=== PATIENT | female | born 1960 | race Caucasian/White ===

== ENCOUNTER 2018-09-10 16:15 | Outpatient (REF) | payer OTHER, SELFPAY | END 2018-09-10 16:35 | LOC: NCHCN 16:15 | PROVIDERS: PCP Physician Assistant Medical; Visit Provider Specialist/Technologist Athletic Trainer | DX: J02.9 Acute pharyngitis, unspecified (principal) | CPT/HCPCS: 87070 ==

== ENCOUNTER 2019-01-16 19:47 | Outpatient (REF) | payer OTHER, SELFPAY ==
[2019-01-21 10:32] LABS: Codeine Negative ng/mL (Cutoff: 25); Dihydrocodeine 73 ng/mL (Cutoff: 25); Hydrocodone 454 ng/mL (Cutoff: 25); Hydromorphone 100 ng/mL (Cutoff: 25); Morphine Negative ng/mL (Cutoff: 25); Naloxone Negative ng/mL (Cutoff: 25); Norhydrocodone 316 ng/mL (Cutoff: 25); Noroxycodone Negative ng/mL (Cutoff: 25); Noroxymorphone Negative ng/mL (Cutoff: 25); Opiates Interpretation Positive.
== END 2019-01-16 20:07 ==
LOC: NCHCN 19:47
PROVIDERS: PCP Physician Assistant Medical; Visit Provider Physician Assistant Medical
DX: M25.561 Pain in right knee (principal); Z79.891 Long term (current) use of opiate analgesic
CPT/HCPCS: 80361

== ENCOUNTER 2020-06-22 20:35 | Outpatient (REF) | payer OTHER, SELFPAY ==
[2020-06-22 20:49] LABS: Abs Immature Grans 0.03 10^3/uL (0.0-0.06); Absolute Basophil Count 0.05 10^3/uL (0.0-0.2); Absolute Eosinophil Count 0.26 10^3/uL (0.0-0.7); Absolute Lymphocyte Count 3.32 10^3/uL (1.2-3.4); Absolute Monocyte Count 0.56 10^3/uL (0.1-0.8); Absolute Neutrophil Count 6.53 10^3/uL (1.2-6.7); Basophils % 0.5; Eosinophils % 2.4; HCT 38.9 % (36.0-46.0); HGB 13.4 g/dL (11.2-15.7); Immature Grans % 0.3; Lymphocytes % 30.9; MCH 30.7 pg (27.0-33.0); MCHC 34.4 % (32.0-36.0); MCV 89.2 fL (80-95); MPV 10.7 fL (8.0-11.0); Monocytes % 5.2; Neutrophils % 60.7; Nucleated RBC 0 %; Platelet Count 372 10^3/uL (130-400); RBC 4.36 10^6/uL (3.93-5.22); RDW 11.5 % (11.7-14.6); WBC 10.75 10^3/uL (4.4-10.8)
[2020-06-22 21:10] LABS: ALT 30 U/L (14-59); AST 20 U/L (15-37); Albumin 3.8 g/dL (3.4-5.0); Alkaline Phosphatase 88 U/L (46-116); Anion Gap 10.4 mmol/L (3-11); BUN 15 mg/dL (7-18); Bilirubin, Total 0.2 mg/dL (0.2-1.0); CO2 25.6 mmol/L (21.0-32.0); CREATININE 0.81 mg/dL (0.55-1.02); Calcium 8.9 mg/dL (8.5-10.1); Chloride 104 mmol/L (98-107); Glucose 123 mg/dL (74-106); Magnesium 2.1 mg/dL (1.8-2.4); Potassium 3.7 mmol/L (3.5-5.1); Sodium 140 mmol/L (136-145); Total Protein 6.6 g/dL (6.4-8.2)
[2020-06-24 14:38] LABS: Hemoglobin A1C 5.8 % (<5.7)
== END 2020-06-22 20:55 ==
LOC: NCHCN 20:35
PROVIDERS: PCP Physician Assistant Medical; Visit Provider Physician Assistant Medical
DX: R25.2 Cramp and spasm (principal); R73.9 Hyperglycemia, unspecified
CPT/HCPCS: 80053; 83036; 83735; 85025

== ENCOUNTER 2021-03-21 16:41 | Outpatient (REF) | payer MEDICAID, SELFPAY ==
[2021-03-21 22:08] LABS: Calculated LDL 159 mg/dL (<100); Cholesterol 234 mg/dL (<200); HDL Cholesterol 44 mg/dL (40-60); Triglyceride 158 mg/dL (<150)
== END 2021-03-21 16:42 | disposition home or self-care (01) ==
LOC: NCHCN 16:41
PROVIDERS: PCP Physician Assistant Medical; Visit Provider Physician Assistant Medical
DX: Z00.8 Encounter for other general examination (principal)
CPT/HCPCS: 80061; 83036

== ENCOUNTER 2021-04-14 03:47 | Outpatient (CLI) | payer MEDICAID, SELFPAY ==
--- NOTE | 2021-04-14 | DI.MAMMO_ITS ---
Exam(s) MAMMO SCREENING EXAM: MAMMO SCREENING CLINICAL HISTORY: SCREENING, HEALTH MAINTENANCE EXAM,Z00.8 TECHNIQUE: Bilateral full field digital CC and MLO mammographic images were obtained with 3D tomosyn thesis and utilizing computer aided detection (CAD). COMPARISON: Available for comparison. FINDINGS: Masses/Architectural Distortion: None seen. Microcalcifications: No suspicious pleomorphic-type are seen. Skin Thickening/Nipple Retraction: None. IMPRESSION: 1. No significant interval change with no specific features of malignancy noted. 2. Unless there is more urgent need, screening mammography is recommended, as per [employer] guidelines. BI-RADS Category 1 - Negative Breast Density - Category B - Scattered areas of fibroglandular density Breast density category C or D implies that the patient has dense breast tissue. Dense breast tissue is very common and is not abnormal but dense breast tissue can make it harder to find cancer on a ma mmogram. Also, dense breast tissue may increase their breast cancer risk. This information about the result of the mammogram report was provided to the patient to raise their awareness. Use this report when you speak with the patient about their risks for breast cancer, which includes their family hist ory. At that time, you may recommend for more screening tests (Ultrasound or MRI) as they might be us eful based on their risk. A negative radiographic report should not delay biopsy if a dominant or clinically suspicious mass is present. Up to ten percent of cancers are not identified on mammography. A negative report may reinforce clinical impression. Adenosis and dense breasts may obscure an underlying neoplasm. False positive reports average 6 to 10%. Patient will receive a letter notifying them of these results.
== END 2021-04-14 04:07 ==
PROVIDERS: PCP Physician Assistant Medical; Visit Provider Physician Assistant Medical
DX: Z12.31 Encounter for screening mammogram for malignant neoplasm of breast (principal); Z00.8 Encounter for other general examination; R92.8 Other abnormal and inconclusive findings on diagnostic imaging of breast
CPT/HCPCS: 77063; 77067

== ENCOUNTER 2021-06-28 13:23 | Outpatient (REF) | payer MEDICAID, SELFPAY ==
[2021-06-28 14:19] LABS: Hemoglobin A1C 5.9 % (<5.7)
[2021-06-28 14:26] LABS: ALT 42 U/L (14-59); AST 16 U/L (15-37); Alkaline Phosphatase 98 U/L (46-116); Anion Gap 11.1 mmol/L (3-11); BUN 11 mg/dL (7-18); Bilirubin, Total 0.4 mg/dL (0.2-1.0); CO2 23.9 mmol/L (21.0-32.0); CREATININE 0.7 mg/dL (0.55-1.02); Calculated LDL 105 mg/dL (<100); Chloride 106 mmol/L (98-107); Cholesterol 162 mg/dL (<200); Glucose 87 mg/dL (74-106); HDL Cholesterol 44 mg/dL (40-60); Potassium 4.2 mmol/L (3.5-5.1); Sodium 141 mmol/L (136-145); Total Protein 7.1 g/dL (6.4-8.2); Triglyceride 69 mg/dL (<150)
== END 2021-06-28 13:24 | disposition home or self-care (01) ==
LOC: NCHCN 13:23
PROVIDERS: PCP Physician Assistant Medical; Visit Provider Physician Assistant Medical
DX: Z00.8 Encounter for other general examination (principal)
CPT/HCPCS: 80053; 80061; 83036

== ENCOUNTER 2021-11-23 11:21 | Outpatient (CLI) | payer MEDICAID, SELFPAY ==
--- NOTE | 2021-11-23 11:17 | DI.RAD_ITS ---
Exam(s) XR KNEE RT 4V AP,LAT,MELYSSA,PAT EXAM: XR KNEE RT 4V AP,LAT,MELYSSA,PAT CLINICAL HISTORY: right knee pain TECHNIQUE: COMPARISON: CR RIGHT KNEE 3 VIEWS from 04/11/2015 FINDINGS: Four views were obtained. There is moderate narrowing of cartilaginous joint space of lateral tibiof emoral joint and mild narrowing of medial tibiofemoral cartilaginous joint space and lateral aspect c artilaginous joint space of patellofemoral joint. There is mild marginal osteophyte formation involv ing all 3 joints of knee. There appears to be a moderate joint effusion. IMPRESSION: Tricompartment degenerative changes, most marked involving lateral tibiofemoral joint. RADIATION DOSE DELIVERED: Total DLP
== END 2021-11-23 11:22 | disposition home or self-care (01) ==
LOC: DIORS 11:22
PROVIDERS: PCP Physician Assistant Medical; Visit Provider Physician Assistant
DX: M25.561 Pain in right knee (principal); M17.11 Unilateral primary osteoarthritis, right knee
CPT/HCPCS: 73564

== ENCOUNTER 2022-07-02 10:06 | Outpatient (REF) | payer MEDICAID, SELFPAY ==
[2022-07-02 16:14] LABS: Hemoglobin A1C 5.9 % (<5.7)
[2022-07-02 16:50] LABS: ALT 51 U/L (14-59); AST 33 U/L (15-37); Albumin 3.8 g/dL (3.4-5.0); Alkaline Phosphatase 77 U/L (46-116); Anion Gap 10.1 mmol/L (3-11); BUN 13 mg/dL (7-18); Bilirubin, Total 0.4 mg/dL (0.2-1.0); CO2 23.9 mmol/L (21.0-32.0); CREATININE 0.8 mg/dL (0.55-1.02); Calcium 9.1 mg/dL (8.5-10.1); Calculated LDL 106 mg/dL (<100); Chloride 104 mmol/L (98-107); Cholesterol 174 mg/dL (<200); Estimated GFR 82.23 (mL/min/1.73m2); Glucose 106 mg/dL (74-106); HDL Cholesterol 39 mg/dL (40-60); Potassium 4.1 mmol/L (3.5-5.1); Sodium 138 mmol/L (136-145); Total Protein 7.3 g/dL (6.4-8.2); Triglyceride 147 mg/dL (<150)
== END 2022-07-02 10:07 | disposition home or self-care (01) ==
LOC: NCHCN 10:06
PROVIDERS: PCP Physician Assistant Medical; Visit Provider Physician Assistant Medical
DX: E78.5 Hyperlipidemia, unspecified (principal); R73.03 Prediabetes
CPT/HCPCS: 80053; 80061; 83036; 84443

== ENCOUNTER → 2022-07-12 03:15 | Outpatient (CLI) | payer MEDICAID, SELFPAY ==
--- NOTE | 2022-07-12 14:30 | DI.CTLCSR_ITS ---
Exam(s) CT CHEST LUNG CANCER SCREEN EXAM: CT CHEST LUNG CANCER SCREEN CLINICAL HISTORY: SMOKER, F17.210 TECHNIQUE: Imaging Protocol: Axial computed tomography images with coronal and sagittal reformatted images were created and reviewed COMPARISON: No exams were available for comparison FINDINGS: Tracheobronchial tree: Patent where visualized. Pulmonary parenchyma: No consolidation or dominant measurable mass. Mild emphysematous changes are pr esent in the lungs. There is mild bilateral dependent atelectasis. Lung Nodules: None. Mediastinum and Noemi: No dominant adenopathy or fluid collection. The esophagus is unremarkable.There is a small hiatal hernia. Thyroid gland: Unremarkable. Lymph nodes: Unremarkable. Pleura: No effusion or pneumothorax. Heart: The heart is not dilated. Mild coronary artery calcifications are present. No pericardial eff usion. Aorta: Thoracic aorta non-dilated. Upper abdomen: Unremarkable. Soft Tissues: Unremarkable. Bones: Within normal limits. IMPRESSION: No pulmonary nodules are identified. Lung RADS Cat 1 - Negative: No nodules and definitely benign nodules Lung-RADS 1.0 CATEGORIES: Category 0 - Prior chest CT exam(s) being located for comparison. Category 1 - Annual screening in 12 months. No nodules or definitely benign nodules. Category 2 - Annual screening in 12 months. Benign appearance. Nodules with low likelihood of becomin g active cancer. Category 3 - 6-month follow-up. Probably benign. Short-term follow-up suggested. Nodules with low lik elihood of becoming active cancer. Category 4A - 3-month follow-up and CT/PET if >8 mm in size. Suspicious finding. Findings which requi re additional testing. Category 4B - Findings which require additional testing and tissue sampling. Suspicious finding. Category 4X - Category 3 or 4 nodules with additional features or imaging findings that increases the suspicion of malignancy. Modifier S- Potentially clinically significant finding. (Non lung cancer) RADIATION DOSE DELIVERED: 85.61mGy.cm Total DLP 2.21mGy!Error CTDIvol 85.61mGy.cm Total DLP 2.21mGy!Error CTDIvol DATA REPOSITORY: All CT scans at this facility are submitted to the National Radiology Data Registry (NRDR) Dose Index Registry (DIR) with the [employer] ([employer]). RADIATION OPTIMIZATION: All CT scans at this facility use at least one of these dose optimization te chniques: automated exposure control; mA and/or kV adjustment per patient size (includes targeted exa ms where dose is matched to clinical indication); or iterative reconstruction.
== END ==
PROVIDERS: PCP Physician Assistant Medical; Visit Provider Physician Assistant Medical
DX: Z12.2 Encounter for screening for malignant neoplasm of respiratory organs (principal); F17.210 Nicotine dependence, cigarettes, uncomplicated
CPT/HCPCS: 71271

== ENCOUNTER 2022-12-26 15:37 | Outpatient (REF) | payer MEDICAID, SELFPAY ==
[2022-12-26 20:16] LABS: ALT 55 U/L (14-59); AST 33 U/L (15-37); Albumin 3.9 g/dL (3.4-5.0); Alkaline Phosphatase 79 U/L (46-116); Anion Gap 8.5 mmol/L (3-11); BUN 14 mg/dL (7-18); Bilirubin, Total 0.4 mg/dL (0.2-1.0); CO2 25.5 mmol/L (21.0-32.0); CREATININE 0.9 mg/dL (0.55-1.02); Calcium 9.4 mg/dL (8.5-10.1); Calculated LDL 127 mg/dL (<100); Chloride 105 mmol/L (98-107); Cholesterol 198 mg/dL (<200); Estimated GFR 71.39 (mL/min/1.73m2); Glucose 108 mg/dL (74-106); HDL Cholesterol 46 mg/dL (40-60); Potassium 3.9 mmol/L (3.5-5.1); Sodium 139 mmol/L (136-145); Total Protein 7.6 g/dL (6.4-8.2); Triglyceride 126 mg/dL (<150)
== END 2022-12-26 15:38 | disposition home or self-care (01) ==
LOC: NCHCN 15:37
PROVIDERS: PCP Physician Assistant Medical; Visit Provider Physician Assistant Medical
DX: E78.5 Hyperlipidemia, unspecified (principal); R73.03 Prediabetes
CPT/HCPCS: 80053; 80061; 83036

== ENCOUNTER 2023-01-08 10:05 | Outpatient (CLI) | payer MEDICAID, SELFPAY ==
--- NOTE | 2023-01-08 08:38 | DI.RAD_ITS ---
Exam(s) XR SHOULDER LT COMPLETE 2+V EXAM: XR SHOULDER LT COMPLETE 2+V CLINICAL HISTORY: Left shoulder pain. TECHNIQUE: 2D digital imaging was performed of the left shoulder. Three images were obtained. AP, Grashey, Y-view and axillary views were obtained. COMPARISON: CT CT CHEST LUNG CANCER SCREEN from 07/12/2022 FINDINGS: BONES: No acute fracture is present. No bony destructive lesion is seen. There is a bony protuberance which may arise from the region of the lesser tuberosity. JOINTS: No dislocation present. There is mild spurring at the humeral head. The glenohumeral joint i s otherwise unremarkable. Mild hypertrophic changes are also seen at the acromioclavicular joint. SOFT TISSUE: Normal. IMPRESSION: 1. Mild degenerative changes seen at the glenohumeral joint. 2. Bony protuberance which appears to arise from the lesser tuberosity. This is incompletely imaged on this examination. A CT scan of the shoulder should be considered for further evaluation. DATA REPOSITORY: RADIATION DOSE DELIVERED:
== END 2023-01-08 10:06 | disposition home or self-care (01) ==
LOC: DIORS 10:05
PROVIDERS: PCP Physician Assistant Medical; Visit Provider Student in an Organized Health Care Education/Training Program
DX: M25.512 Pain in left shoulder (principal); M25.812 Other specified joint disorders, left shoulder
CPT/HCPCS: 73030

== ENCOUNTER 2023-01-09 01:57 | Outpatient (CLI) | payer MEDICAID, SELFPAY ==
--- NOTE | 2023-01-09 07:45 | DI.MRI_ITS ---
Exam(s) MR UPPER JOINT LT WO EXAM: MR UPPER JOINT LT WO CLINICAL HISTORY: PAIN, INJURY,lt rotator cuff tear,m75.102. TECHNIQUE: Multiplanar multisequence MRI was performed. COMPARISON: Plain films 08 January 2023 FINDINGS: BONES: There is no fracture or contusion pattern. There is a prominent spur at the lesser tuberosity and adjacent small subchondral cysts. JOINTS:The acromioclavicular joint shows some fluid and mild inferior spurring. The glenohumeral emil nt is normal. TENDONS: Supraspinatus: Thickening and high signal consistent with severe tendinosis. Infraspinatus: In high signal consistent with tendinosis. Subscapularis: Unremarkable. Teres Minor: Unremarkable. Biceps and [place]: The long head of the biceps is visible approximately but becomes thin and at the l evel of the lesser tuberosity where there is a large spur and degenerative changes. MUSCLES: Unremarkable. GLENOID LABRUM: Unremarkable on this noncontrast examination. SOFT TISSUES: Unremarkable. OTHER: Subacromial and subdeltoid bursae shows small amount of fluid. Small amount of fluid in the s ubcoracoid bursa. . IMPRESSION: Tear of the proximal biceps tendon. Tendinosis involving supraspinatus and infraspinatus tendons. DATA REPOSITORY:
--- NOTE | 2023-01-09 12:05 | DI.MRI_ITS ---
Exam(s) MR UPPER EXTREMITY LT WO CLINICAL HISTORY: INJURY, PAIN, SURGICAL PLANNING,rupture lt proximal biceps tendon,s46.212a. TECHNIQUE: Multiplanar multisequence MRI Examination was performed. CONTRAST MATERIAL: None COMPARISON: MRI of the shoulder of the same day. Plain films of the shoulder 08 January 2023 FINDINGS: Bones: There is no fracture or contusion pattern. No bone marrow edema is present Musculotendinous structures: The superior biceps tendon is torn and retracted. There is some fluid s urrounding the upper biceps tendon and muscle. There is no muscular edema, myositis or focal collect ion. No muscular injury the distal biceps tendon is not completely visualized but appears normal whe re seen. IMPRESSION: Tear and retraction of the proximal biceps tendon with some surrounding fluid. DATA REPOSITORY:
== END 2023-01-09 02:17 ==
LOC: DI 01:58
PROVIDERS: PCP Physician Assistant Medical; Visit Provider Student in an Organized Health Care Education/Training Program
DX: S46.212A Strain of muscle, fascia and tendon of other parts of biceps, left arm, initial encounter
CPT/HCPCS: 73218; 73221

== ENCOUNTER 2023-01-11 08:37 | Day surgery (SDC) | payer MEDICAID, SELFPAY ==
[2023-01-11] VITALS (10 sets, daily range): BP systolic 82–129; BP diastolic 49–80; PULSE 55–79; RESP 11–21; TEMP 36.1–36.6; O2SAT 92–988; BMI 31.2
--- NOTE | 2023-01-11 07:17 | W.PM.DSUDISC ---
Date of service: 01/11/23 Time of Service: 14:00 Discharge Plan Disposition Patient Disposition: Home Discharge Details Reason For Visit: PROX BICEPS RUPTURE,POSS.RCT Attending Provider: Niko Tejeda Primary Care Provider: Michael Brooks Home Meds and New Rx's Prescriptions: New oxycodone 5 mg tablet 5 - 10 mg PO Q4H MDD 30 mg PRN (Reason: moderate to severe pain) Qty: 18 0RF naproxen 250 mg tablet 250 - 500 mg PO BID PRNQty: 40 0RF Rx Instructions: take with a meal Continued Biofreeze (menthol) 118 ML gel 118 ml Topical DIRECTED multivitamin Tablet 1 tab PO DAILY simvastatin 20 mg tablet 20 mg PO DAILY Nicotrol 10 mg cartridge 1 inh inhalation 4-6XD PRN zolpidem 5 mg tablet 5 mg PO QHS PRN Spiriva Respimat 1.25 mcg/actuation mist 2 puff inhalation DAILY docusate sodium 100 mg capsule 100 mg PO DAILY Discontinued hydrocodone-acetaminophen 10-325 mg tablet See Rx Instructions PO .COMPLEX PRN Rx Instructions: 1/2 tab orally in the am; 1/2 tab in the afternoon; 1 tab q hs Discharge Instructions Additional Instructions: Surgery: Left shoulder arthroscopy with extensive debridement, subacromial decompression, and open biceps tenodesis. Activity: You should gradually increase range of motion motion and use of your shoulder. You may use your shoulder for all regular activities while protecting biceps repair. Avoid any weighted elbow flexion or resisted supination for 6-8 weeks. No heavy lifting, reaching overhead, or lifting away from body for approximately 2-3 months. You may use the sling whenever you are out of the house for a few weeks. At home it is best to remove the sling and rest the arm on a pillow at your side or support the operative side with your other hand. A physical therapy prescription will be provided separately in the office at follow-up if needed. Prescriptions: Naproxen 250 mg take 1-2 every 12 hours with a meal as needed for moderate pain Oxycodone 5 mg take 1-2 every 4-6 hours as needed for severe pain You may use [id number] Tylenol (acetaminophen) as needed for mild pain. These pain medications may be taken all at once or in different combinations as needed. Also, recommend Colace (docusate) as a stool softener as surgery and pain medicine cause constipation. You may try ripe-llh-hglefkq diphenhydramine (Benadryl) 25-50 mg nightly as a sleep aid Dressings: Remove shoulder bandage after 3 days. Leave the sticky Steri-Strips in place until they fall off or remove them after you shower. Cover the incisions with Band-Aids or leave them open to air. The biceps bandage (inside upper arm) is glued on separately. You may leave this one on a few days longer if it is difficult to remove. There is also glue underneath this bandage that can be left in place until it peels off. You may shower after 5 days. Follow-up: 10-[address] Tejeda You may take off the leg compression stockings this evening at home. You may also leave them on a few days longer if you have a history of leg swelling or edema. Let us know right away if you develop any redness, drainage, fevers, chest pain, or trouble breathing. Do not drink alcohol or drive for at least 24 hours after anesthesia. Please call the office during business hours with any questions or concerns. Discharge Orders Discharge Orders: Discharge Order (Routine); Ordered 01/11/23 Ordered By: Niko Tejeda DS: Diagnosis Discharge Diagnosis (1) Rupture of left proximal biceps tendon: Status: Acute
--- NOTE | 2023-01-11 07:18 | W.PM.OP ---
Date of service: 01/11/23 Time of Service: 12:00 Operative Note Operative Note DATE OF PROCEDURE: 01/11/23 PRE-OP DIAGNOSIS: Left: 1. Rotator cuff tear 2. Proximal biceps rupture POST-OP DIAGNOSIS: same PROCEDURE: Left: 1. Open biceps tenodesis, CPT# 32100. This involved reattaching the long head of the biceps tendon to the proximal humerus in the sub-pectoral area of the bicipital groove at the correct tension. 2. Extensive debridement, CPT# 05259. This involved using arthroscopic hand instruments, power instruments, and radiofrequency instruments to resect arthroscopic biceps tendon remnant, debride areas of partial articular supraspinatus and subscapularis rotator cuff tearing, debride labral tearing and fraying, and debride significant anterior and rotator interval synovitis working within the glenohumeral joint anteriorly, superiorly and posteriorly as well as completing a bursectomy in the subacromial space. The case assistant was medically required in order to help assist in techniques above, which require positioning the arm, holding the arthroscope, and manipulating multiple instruments and sutures at the same time. This cannot be done without the help of an experienced case assistant. SURGEON: Niko Tejeda VENEER CLIPPER HELPER: Wendy New ANESTHESIA TYPE: Local By Surgeon, General LMA/ETT and Primary Nerve Block Refer to Anesthesia Record ESTIMATED BLOOD LOSS: 5 PATHOLOGY: none sent COMPLICATIONS: None Patient was transported to: PACU Patient's condition: stable Implants: Arthrex: Unicortical Proximal Biceps Tenodesis Button Indications: The patient was diagnosed with the above conditions and appropriately indicated for surgical intervention. Please see complete medical record for details. Findings: Exam under anesthesia: Obvious distal Ruben deformity with palpable biceps tendon stump mid to proximal arm. Full range of motion without instability of the shoulder. Glenohumeral joint: Significant anterior and superior including rotator interval synovitis and tendon fraying involving the articular supraspinatus, upper margin of the subscapularis, and a large frayed and free flapping remnant of the biceps tendon anchor. Subacromial space: Moderate bursitis. Intact bursal rotator cuff. Procedure Description: In the operating room, general anesthesia was induced. Bilateral shoulders were examined. The patient was positioned in the beachchair position. All bony prominences were well-padded. Preoperative antibiotics were administered. The shoulder was prepped and draped in the usual sterile fashion. The correct patient, procedure, and side of the procedure were all verified prior to incision. Starting through the posterior portal a standard complete diagnostic arthroscopy was performed of the glenohumeral joint including inspection of the long head of the biceps, anterior and superior labrum, subscapularis tendon, supraspinatus and infraspinatus tendons, and axillary recess. The glenoid and humeral head cartilage as well as the posterior labrum were inspected from an anterior viewing portal. Significant findings and interventions noted above as part of an extensive debridement to debride and resect damaged structures and biceps tendon stump/remnant from the proximal biceps rupture. The debridement was carried into the subacromial space still using only the anterior and posterior portals, which were redirected, and a complete bursectomy done of abundant lateral bursa as needed to fully inspect and confirm intact bursal rotator cuff. The shoulder was drained of arthroscopic fluid. All portal sites were copiously irrigated. 10 cc of 0.25% bupivacaine with epinephrine was infiltrated about a 4 cm longitudinal incision located just distal to the usual inferior margin of the pectoralis major just proximal to the palpable stump of the long head of the biceps tendon in the anterior mid to proximal arm. Blunt and sharp dissection were used to expose the biceps tendon stump which was coiled up as expected in the palpable area of deformity. It was brought out of the wound and kept off the skin on top of a blue towel. The correct location for sub-pectoral fixation was localized, prepped with a rasp, and then drilled with a 3.2 mm drill pin in a unicortical fashion. Using a fiber loop suture the tendon was prepped from the musculotendinous junction a few centimeters proximal. The excess tendon was amputated. The free suture ends were then passed through the unicortical button implant. The drill pin was removed and the implant was placed into the humeral intramedullary canal. The button was flipped and the sutures were tensioned bringing the tendon down to bone. Tension and fixation were then tested and found to be appropriate with De?tensioning done and extra tendon used for repair given the somewhat subacute rupture and degenerative tendon remnant quality. The free ends of the suture were were tied compressing tendon to bone. The wound was copiously irrigated with normal saline. Subcutaneous tissue was closed using 3-0 Monocryl in a buried interrupted fashion. Skin was closed using 3-0 Monocryl in a buried subcuticular running fashion. Skin glue was applied over the incision. Mastisol was applied about the incision. The incision was covered with Telfa, gauze, and covered with a Tegaderm dressing. The shoulder portals closed using 3-0 Monocryl in a buried fashion and then covered with Mastisol, Steri-Strips, Xeroform, dry gauze, and ABDs. The dressings were covered and secured with Medipore tape. The operative extremity was placed into a sling for immobilization. The patient awoke from anesthesia without complication and was transferred to the recovery room in a stable condition.
--- NOTE | 2023-01-11 09:10 | ANES.PREOP_ITS ---
General Info Date of Service Date Performed: 01/11/23 Height: 5 ft 7 in Weight: 90.6 kg Body Mass Index (BMI): 31.2 Surgical Procedure: Operation Date: 01/11/23 11:25 Proposed Procedure Side Surgeon p Shoulder Arthroscopy, extensive debridement, open biceps tenodesis Left Niko Tejeda MD Meds Allergies and Home Medications Allergies Allergy/AdvReac Type Severity Reaction Status Date / Time amitriptyline Allergy Mild Verified 01/11/23 08:48 codeine AdvReac Intermediate Hives Verified 01/11/23 08:48 aspirin AdvReac Mild GI UPSET Verified 01/11/23 08:53 Home Medication Medication Instructions Recorded menthol 4 % topical gel (Biofreeze 118 ml topical DIRECTED 11/15/14 (menthol)) multivitamin 1 tab PO DAILY 10/13/21 nicotine 10 mg inhalation 1 inh inhalation 4-6XD PRN 10/13/21 cartridge (Nicotrol) simvastatin 20 mg tablet 20 mg PO DAILY 10/13/21 docusate sodium 100 mg capsule 100 mg PO DAILY 01/01/23 tiotropium bromide 1.25 2 puff inhalation DAILY 01/01/23 mcg/actuation mist for inhalation (Spiriva Respimat) zolpidem 5 mg tablet 5 mg PO QHS PRN 01/01/23 naproxen 250 mg tablet 250 - 500 mg PO BID PRN #40 tabs 01/11/23 oxycodone 5 mg tablet 5 - 10 mg PO Q4H PRN moderate to 01/11/23 severe pain #18 tabs Current Visit Medications: Current Medications Generic Name Dose Route Start Last Admin Trade Name Freq PRN Reason Stop Dose Admin Ringer's Solution 1,000 mls @ 30 mls/hr 01/11/23 06:00 IV 02/09/23 23:59 INFUSION NATHANIEL Cefazolin Sodium/Dextrose 2 gm in 50 mls @ 100 mls/hr 01/11/23 06:00 Ancef Duplex IVPB 02/09/23 23:59 PREOP NATHANIEL IV Miscellaneous Supplies 1 each 01/11/23 06:00 Iv Access IV 02/09/23 23:59 DIRECTED NATHANIEL Oxycodone HCl 0 mg 01/11/23 07:17 Oxycodone 5 Mg Tab PO Q3H PRN PRN Pain Sodium Chloride 0 ml 01/11/23 06:00 Normal Saline Flush 10 Ml Syr IV 02/09/23 23:59 PRN PRN Sodium Chloride 0 ml 01/11/23 06:00 Normal Saline 10 Ml Vial IJ 02/09/23 23:59 DIRECTED PRN Sterile Water 0 ml 01/11/23 06:00 Water,Injection,Sterile 10 Ml Vial IJ 02/09/23 23:59 DIRECTED PRN PFSH Active Problems Active Problems: Problem Status Onset Code Carpal tunnel syndrome of right wrist G56.01 Prediabetes R73.03 Tobacco use Z72.0 Hyperlipidemia E78.5 Chronic pain G89.29 Osteoarthritis of right knee M17.11 Tear of lateral meniscus of right knee S83.281A Rupture of left proximal biceps tendon S46.212A Left rotator cuff tear M75.102 Surgical History Surgical History History of carpal tunnel release History of tonsillectomy History of tubal ligation Tobacco Smoking/Tobacco Use Status: Current-Occasional Alcohol Alcohol Intake: former Substance Use Substance use: Occasionally Substance use type: marijuana Details: Edibles Vital Signs and Lab Results Vital Signs Most Recent Vital Signs in EMR: Most Recent Vital Signs Temp Pulse Resp BP Pulse Ox 36.5 C 79 16 129/80 988 H 01/11/23 08:50 01/11/23 08:50 01/11/23 08:50 01/11/23 08:50 01/11/23 08:50 Lab Results Blood Type / Crossmatch: No Data to Display Complete Blood Count: No Data to Display Complete Metabolic Panel: Sodium 139 mmol/L (136-145) 12/26/22 14:20 Potassium 3.9 mmol/L (3.5-5.1) 12/26/22 14:20 Chloride 105 mmol/L (98-107) 12/26/22 14:20 Carbon Dioxide 25.5 mmol/L (21.0-32.0) 12/26/22 14:20 BUN 14 mg/dL (7-18) 12/26/22 14:20 Creatinine 0.9 mg/dL (0.55-1.02) 12/26/22 14:20 Est GFR (CKD-EPI 2020) 71.39 (mL/min/1.73m2) 12/26/22 14:20 Calcium 9.4 mg/dL (8.5-10.1) 12/26/22 14:20 Albumin 3.9 g/dL (3.4-5.0) 12/26/22 14:20 Glucose 108 mg/dL (74-106) H 12/26/22 14:20 Hemoglobin A1c 6.0 % (<5.7) H 12/26/22 14:20 Liver Function Panel: Alanine Aminotransferase (ALT/SGPT) 55 U/L (14-59) 12/26/22 14: 20 Aspartate Amino Transf (AST/SGOT) 33 U/L (15-37) 12/26/22 14:20 Coagulation Panel: No Data to Display Cardiac Panel: No Data to Display Arterial Blood Gas: No Data to Display Venous Blood Gas: No Data to Display Pancreas Panel: No Data to Display Thyroid Panel: No Data to Display Infectious Disease: No Data to Display Blood Cultures: No Data to Display Toxicology Panel: No Data to Display Anesthesia Assessment and Plan Anesthesia History Personal History: No History of Anesthesia Complications Family History: No Family History of Anesthesia Complications Exercise Tolerance Exercise Tolerance: Metabolic Equivalents>4 Pertinent Negatives Pertinent Negatives: No Symptoms of GERD, No Major Cardiovascular Symptoms or Complaints and No Major Pulmonary Symptoms or Complaints Cardiac & Pulmonary Exam Cardiac Exam: Normal S1/S2 Heart Sounds Pulmonary Exam: Clear Bilateral Breath Sounds Implantable Cardiac Device Does patient have a Pacemaker or an ICD?: No Airway Exam Known Difficult Airway: No Mallampati Class: 2 Mouth Opening: Normal (> 3cm) Thyromental Distance: Less than 3 cm Neck Range of Motion: Full ROM Neck Circumference: Normal Teeth Condition: Removable Dentures/Plates Upper and Removable Dentures/Plates Lower ASA Classification ASA Score: ASA 2 Emergency Case?: No NPO Status NPO Status: NPO Clears >2 hours, Solids >8 hours Anesthesia Plan Resuscitation Status: Full Code Anesthesia Technique: General Anesthesia Airway Planned: Endotracheal Tube Pain Management: Surgeon and patient request nerve block Monitors Used: Standard Monitors
[2023-01-11] MEDS: Lactated Ringers 1,000 ML 30 ML IV (09:25)
--- NOTE | 2023-01-11 10:17 | W.ANESNERVE ---
Nerve Block Single Injection Procedure Date and Time Date Performed: 01/11/23 Procedure Start: 10:12 Location Where Procedure Performed Procedure Location: Day Surgery Unit Reason Performed: Postoperative Analgesia Requesting Provider: Niko Tejeda Timeout Performed Timeout Performed: Yes Monitoring Used ECG, Blood Pressure, SpO2 and See EMR for corresponding vital signs Sterility Sterility: Hand Hygiene, Surgical Cap, Surgical Mask, Sterile Gloves and Chlorhexidine Sedation Given During Procedure Sedation Given (Indicate Dose Given): Versed IV Dose:: 2mg Patient Mental Status Patient Mental Status: Sedate with meaningful communication Nerve Block 1st Nerve Block: Laterality: Left Block Type: Supraclavicular Ultrasound Image Saved?: Yes Needle / Catheter Used: 100mm SonoPlex II Local Anesthetic Bolus (Indicate Dose Given): Lidocaine used for local infiltration of skin, Injected in 3-5ml increments after negative blood aspiration, Bupivacaine 0.5% Dose:: 10ml and Exparel Dose:: 10ml Additives (Indicate Dose Given): None Ultrasound: Sterile probe cover and gel used Nerve Stimulator: Supplement to Ultrasound use, Expected parasthesia or motor response elicited and No twitch or parasthesia noted < 0.5 mA Paresthesia: None Procedure Tolerated: No Complications and Patient tolerated well Procedure Outcome: Successful Procedure Comment: Uncomplicated block. Performed By: Cristian Castro
[2023-01-11] MEDS: ceFAZolin 2 GM/50 ML BAG IVPB (11:57)
--- NOTE | 2023-01-11 14:46 | W.ANESPOSTOP ---
Postoperative Evaluation Date, Time and Location Date Performed: 01/11/23 Time Performed: 14:46 Patient Location: Day Surgery Unit Vital Signs Most Recent Imported Vital Signs: Most Recent Vital Signs Temp Pulse Resp BP Pulse Ox 36.1 C L 60 16 98/77 L 96 01/11/23 14:29 01/11/23 14:29 01/11/23 14:29 01/11/23 14:29 01/11/23 14:29 Pain Score Most Recent Pain Score: Most Recent Pain Score Pain Level 5 01/11/23 14:29 Assessment Mental Status: Awake (Alert & Oriented to Patient Baseline) Airway and Respiratory Function: Patent airway with normal (patient baseline) respiratory exam Cardiovascular Function: Hemodynamically Stable Hydration Status: Adequately Hydrated Nausea & Vomiting: No Nausea or Vomiting Pain: Pain is tolerable per patient Peripheral Nerve Block: Regional nerve block not resolved at time of post operative discharge
== END 2023-01-11 15:25 | disposition home or self-care (01) ==
PROVIDERS: PCP Physician Assistant Medical; Visit Provider Student in an Organized Health Care Education/Training Program
PROC: (CPT 29805; principal; 2023-01-11 11:15)
DX: M75.102 Unspecified rotator cuff tear or rupture of left shoulder, not specified as traumatic (principal); S46.112A Strain of muscle, fascia and tendon of long head of biceps, left arm, initial encounter; M65.812 Other synovitis and tenosynovitis, left shoulder; M75.52 Bursitis of left shoulder; X58.XXXA Exposure to other specified factors, initial encounter
CPT/HCPCS: 23430; 29823; 76942; J0131; J0690; J1100; J2250; J2370; J2405; J3475

== ENCOUNTER 2023-02-19 10:02 | Outpatient (CLI) | payer MEDICAID, SELFPAY ==
--- NOTE | 2023-02-19 09:30 | DI.RAD_ITS ---
Exam(s) XR SHOULDER RT COMPLETE 2+V EXAM: XR SHOULDER RT COMPLETE 2+V CLINICAL HISTORY: right shoulder pain. TECHNIQUE: 2D digital imaging was performed of the right shoulder. Two images were obtained. AP an d axillary views were obtained. COMPARISON: No exams were available for comparison FINDINGS: BONES: No acute fracture is present. No bony destructive lesion is seen. JOINTS: No dislocation present. Degenerative changes are seen at both the acromioclavicular and gleno humeral joints characterized by joint space narrowing and bony hypertrophy. Subchondral cysts are se en in the distal clavicle. SOFT TISSUE: Normal. IMPRESSION: Degenerative changes of the shoulder. DATA REPOSITORY: RADIATION DOSE DELIVERED:
== END 2023-02-19 10:03 | disposition home or self-care (01) ==
LOC: DIORS 10:03
PROVIDERS: PCP Physician Assistant Medical; Referring Provider Physician Assistant Medical; Visit Provider Student in an Organized Health Care Education/Training Program
DX: M19.011 Primary osteoarthritis, right shoulder (principal)
CPT/HCPCS: 73030

== ENCOUNTER 2023-04-09 10:34 | Outpatient (REF) | payer MEDICAID, SELFPAY ==
[2023-04-09 14:51] LABS: Bacteria Few HPF (Negative); C & S Indicated? C&S Done As Ordered; Casts Negative LPF (Negative); Crystals Negative HPF (Negative); Epithelial Cells Few HPF (Negative); Mucus Negative (Negative)
== END 2023-04-09 10:35 | disposition home or self-care (01) ==
LOC: LBN 10:34
PROVIDERS: PCP Physician Assistant Medical; Visit Provider Nurse Practitioner Family
DX: R35.0 Frequency of micturition (principal)
CPT/HCPCS: 81015; 87086

== ENCOUNTER 2023-04-09 10:53 | Outpatient (CLI) | payer MEDICAID, SELFPAY ==
--- NOTE | 2023-04-09 | DI.CT_ITS ---
Exam(s) CT ABDOMEN PELVIS W EXAM: CT ABDOMEN PELVIS W CLINICAL HISTORY: LLQ ABD PAIN, R10.32. TECHNIQUE: Imaging Protocol: Axial computed tomography images with coronal and sagittal reformatted images were created and reviewed CONTRAST MATERIAL: Intravenous: Omnipaque-350 100cc Oral: Yes. Oral contrast was also administered for bowel opacification. COMPARISON: No exams were available for comparison FINDINGS: VISUALIZED LUNG BASES: No nodules nor pleural effusions evident. ABDOMEN: There is no ascites. LIVER: There are no focal hepatic lesions evident. No dilated intrahepatic ducts. GALLBLADDER/BILIARY: No obvious gallbladder pathology. CBD is not dilated. PANCREAS: No evidence of pancreatic mass nor dilatation of the pancreatic duct. SPLEEN: Spleen is not enlarged. Tiny 2 millimeter cyst noted in the spleen. Splenic and portal vein s are patent. ADRENALS: There is abnormal nodule in the left adrenal gland measuring 2 by 1.6 by 1.8 cm. Right adr enal gland unremarkable. KIDNEYS:Tiny benign cyst in the left kidney measuring 3 mm. Similar sized benign cysts noted in the opposite-right kidney. No significant solid renal masses. No calculi nor hydronephrosis.. ABDOMINAL AORTA: Abdominal aorta is not enlarged. LYMPH NODES:There is no retroperitoneal nor paraaortic adenopathy. ABDOMINAL WALL: No evidence of significant anterior abdominal wall nor inguinal hernia. GI: There is no evidence of bowel obstruction, free air, nor abscess. PELVIS: GI: No evidence of appendicitis.Redundant sigmoid but no evidence of acute diverticulitis. LYMPH NODES: There is no intrapelvic nor inguinal adenopathy. REPRODUCTIVE: Large calcified fibroid noted in the posterior myometrium. No abnormal adnexal masses. No free fluid in the pelvis. URINARY BLADDER: No calculi nor obvious masses evident OSSEOUS: No fractures and no significant osseous lesions. Chronic multilevel degenerative disc disease L4-5 and L5-S1 levels. IMPRESSION: 1. Large calcified left uterine fibroid measures approximately 2 x 2.3 cm. No abnormal adnexal jennifer s. No free fluid. 2. No evidence of acute appendicitis nor diverticulitis. 3. Incidentally noted is a 2 cm nodule in the left adrenal gland. Abnormal versus other pathology. Can be further worked up with chemical shift imaging MRI sequences. 4. No ascites evident. Wet read RADIATION DOSE DELIVERED: Total DLP DATA REPOSITORY: All CT scans at this facility are submitted to the National Radiology Data Registry (NRDR) Dose Index Registry (DIR) with the [employer] (ACR). RADIATION OPTIMIZATION: All CT scans at this facility use at least one of these dose optimization te chniques: automated exposure control; mA and/or kV adjustment per patient size (includes targeted exa ms where dose is matched to clinical indication); or iterative reconstruction.
[2023-04-09 11:20] LABS: ESR 7 mm/hr (0-30)
[2023-04-09 11:21] LABS: Abs Immature Grans 0.02 10^3/uL (0.0-0.06); Absolute Basophil Count 0.05 10^3/uL (0.0-0.2); Absolute Eosinophil Count 0.17 10^3/uL (0.0-0.7); Absolute Lymphocyte Count 2.72 10^3/uL (1.2-3.4); Absolute Monocyte Count 0.58 10^3/uL (0.1-0.8); Basophils % 0.6; Eosinophils % 1.9; HCT 43.8 % (36.0-46.0); Immature Grans % 0.2; Lymphocytes % 31.1; MCH 30.8 pg (27.0-33.0); MCHC 34.2 % (32.0-36.0); MCV 90 fL (80-95); MPV 10.4 fL (8.0-11.0); Monocytes % 6.6; Neutrophils % 59.6; Platelet Count 314 10^3/uL (130-400); RBC 4.87 10^6/uL (3.93-5.22); RDW 11.3 % (11.7-14.6); RDW-SD 37.2 fL; WBC 8.74 10^3/uL (4.4-10.8)
[2023-04-09 11:40] LABS: ALT 52 U/L (14-59); AST 30 U/L (15-37); Alkaline Phosphatase 87 U/L (46-116); BUN 14 mg/dL (7-18); Bilirubin, Total 0.5 mg/dL (0.2-1.0); C-Reactive Protein 0.18 mg/dL (0.0-0.3); CREATININE 0.8 mg/dL (0.55-1.02); Calcium 9.6 mg/dL (8.5-10.1); Chloride 105 mmol/L (98-107); Estimated GFR 82.23 (mL/min/1.73m2); Glucose 94 mg/dL (74-106); Potassium 4.2 mmol/L (3.5-5.1); Sodium 141 mmol/L (136-145); Total Protein 7.4 g/dL (6.4-8.2)
[2023-04-09] MEDS: Omnipaque 350 MG/ML 100 ML BTL IJ (13:32)
[2023-04-09] MEDS: Normal Saline - Diluent 50 ML VIAL IJ (13:33)
[2023-04-09] MEDS: Barium Sulfate 2% W/V-Berry Smoothie 450 ML BTL 900 ML PO (13:33)
== END 2023-04-09 11:13 ==
LOC: DI 10:53
PROVIDERS: PCP Physician Assistant Medical; Visit Provider Nurse Practitioner Family
DX: D25.9 Leiomyoma of uterus, unspecified (principal); R10.32 Left lower quadrant pain
CPT/HCPCS: 80053; 85652; 74177; 85025; 86140; J3490

== ENCOUNTER 2023-04-15 16:32 | Outpatient (REF) | payer MEDICAID, SELFPAY | END 2023-04-15 16:33 | disposition home or self-care (01) | LOC: NCHCN 16:32 | PROVIDERS: PCP Physician Assistant Medical; Visit Provider Family Medicine | DX: R10.32 Left lower quadrant pain (principal); R82.998 Other abnormal findings in urine | CPT/HCPCS: 87086 ==

== ENCOUNTER → 2023-04-30 12:15 | Outpatient (CLI) | payer MEDICAID, SELFPAY ==
--- NOTE | 2023-04-30 | DI.RAD_ITS ---
Exam(s) XR THORACIC SPINE COMPLETE EXAM: XR THORACIC SPINE COMPLETE CLINICAL HISTORY: LT FLANK PAIN R10.9 LLQ ABD PAIN R10.32 BACK PAIN M54.9 R/O ARTHRITIS. TECHNIQUE: 2D digital imaging was performed. Three views. COMPARISON: No exams were available for comparison FINDINGS: BONES: There is no fracture or destructive lesion. The vertebral bodies and posterior elements are un remarkable. ALIGNMENT: Within normal limits. DISKS: Endplate osteophytes. Mild narrowing of the anterior intervertebral disc spaces. SOFT TISSUE: Visualized lungs are clear. IMPRESSION: Degenerative disc changes. DATA REPOSITORY: RADIATION DOSE DELIVERED:
== END ==
PROVIDERS: PCP Physician Assistant Medical; Visit Provider Physician Assistant Medical
DX: R10.32 Left lower quadrant pain (principal); M54.9 Dorsalgia, unspecified
CPT/HCPCS: 72072

== ENCOUNTER → 2023-08-09 00:06 | Outpatient (CLI) | payer MEDICARE, MEDICAID, SELFPAY ==
--- NOTE | 2023-08-09 11:30 | DI.DEXA_ITS ---
Exam(s) XR DEXA BONE DENSITY W/WO NELL EXAM: XR DEXA BONE DENSITY W/WO NELL CLINICAL HISTORY: POSTMENOPAUSAL Z78.0 HEALTH MAINTENANCE Z00.8 TECHNIQUE: COMPARISON: No exams were available for comparison FINDINGS: Lateral Spine Image: Unremarkable. No compression deformities identified. Left hip: Total T-Score: -1.0 Total Z-Score: 0.3 T- and Z-scores: No evidence of osteoporosis. Lumbar Spine: Total T-Score: -0.1 Total Z-Score: 1.7 T- and Z-scores: Within normal limits. IMPRESSION: No evidence of osteoporosis.
--- NOTE | 2023-08-09 11:57 | DI.MAMMO_ITS ---
Exam(s) MAMMO SCREENING EXAM: MAMMO SCREENING CLINICAL HISTORY: SCREENING MAMMO FOR BREAST CANCER Z12.39 Z12.31 TECHNIQUE: Bilateral full field digital CC and MLO mammographic images were obtained with 3D tomosyn thesis and utilizing computer aided detection (CAD). COMPARISON: Available for comparison. FINDINGS: Masses/Architectural Distortion: There is an asymmetric density in the outer left retroareolar region of the left breast 5 cm from the nipple. No areas of architectural distortion are seen. Microcalcifications: No suspicious pleomorphic-type are seen. Skin Thickening/Nipple Retraction: None. IMPRESSION: 1. Asymmetric breast tissue in the outer retroareolar region of the left breast which appears more pr ominent compared to the prior examination. 2. A spot compression views requested for further evaluation. BI-RADS Category 0 - Assessment Incomplete: Need additional imaging evaluation Breast Density - Category B - Scattered areas of fibroglandular density Breast density category C or D implies that the patient has dense breast tissue. Dense breast tissue is very common and is not abnormal but dense breast tissue can make it harder to find cancer on a ma mmogram. Also, dense breast tissue may increase their breast cancer risk. This information about the result of the mammogram report was provided to the patient to raise their awareness. Use this report when you speak with the patient about their risks for breast cancer, which includes their family hist ory. At that time, you may recommend for more screening tests (Ultrasound or MRI) as they might be us eful based on their risk. A negative radiographic report should not delay biopsy if a dominant or clinically suspicious mass is present. Up to ten percent of cancers are not identified on mammography. A negative report may reinforce clinical impression. Adenosis and dense breasts may obscure an underlying neoplasm. False positive reports average 6 to 10%. Patient will receive a letter notifying them of these results.
--- NOTE | 2023-08-09 12:04 | DI.CTLCSR_ITS ---
Exam(s) CT CHEST LUNG CANCER SCREEN EXAM: CT CHEST LUNG CANCER SCREEN CLINICAL HISTORY: SMOKER F17.210 SCREENING FOR LUNG CANCER TECHNIQUE: Imaging Protocol: Axial computed tomography images with coronal and sagittal reformatted images were created and reviewed COMPARISON: CT CT CHEST LUNG CANCER SCREEN from 07/12/2022 FINDINGS: Tracheobronchial tree: Patent where visualized. Pulmonary parenchyma: No consolidation or dominant measurable mass. No architectural distortion. Lung Nodules: None. Mediastinum and Noemi: No dominant adenopathy or fluid collection. The esophagus is unremarkable. Thyroid gland: Unremarkable. Lymph nodes: Unremarkable. Pleura: No effusion or pneumothorax. Heart: The heart is not dilated. Mild coronary artery calcification. No pericardial effusion. Aorta: Thoracic aorta non-dilated. Upper abdomen: Unremarkable. There is a stable left adrenal nodule. Soft Tissues: Unremarkable. Bones: Within normal limits. IMPRESSION: No pulmonary nodules. Lung RADS Cat 1 - Negative: No nodules and definitely benign nodules Lung-RADS 1.0 CATEGORIES: Category 0 - Prior chest CT exam(s) being located for comparison. Category 1 - Annual screening in 12 months. No nodules or definitely benign nodules. Category 2 - Annual screening in 12 months. Benign appearance. Nodules with low likelihood of becomin g active cancer. Category 3 - 6-month follow-up. Probably benign. Short-term follow-up suggested. Nodules with low lik elihood of becoming active cancer. Category 4A - 3-month follow-up and CT/PET if >8 mm in size. Suspicious finding. Findings which requi re additional testing. Category 4B - Findings which require additional testing and tissue sampling. Suspicious finding. Category 4X - Category 3 or 4 nodules with additional features or imaging findings that increases the suspicion of malignancy. Modifier S- Potentially clinically significant finding. (Non lung cancer) RADIATION DOSE DELIVERED: Total DLP Total DLP DATA REPOSITORY: All CT scans at this facility are submitted to the National Radiology Data Registry (NRDR) Dose Index Registry (DIR) with the [employer] (ACR). RADIATION OPTIMIZATION: All CT scans at this facility use at least one of these dose optimization te chniques: automated exposure control; mA and/or kV adjustment per patient size (includes targeted exa ms where dose is matched to clinical indication); or iterative reconstruction.
== END ==
PROVIDERS: PCP Physician Assistant Medical; Visit Provider Physician Assistant Medical
DX: Z12.2 Encounter for screening for malignant neoplasm of respiratory organs (principal); F17.210 Nicotine dependence, cigarettes, uncomplicated
CPT/HCPCS: 71271; 77063; 77067; 77080

== ENCOUNTER → 2023-08-16 00:43 | Outpatient (CLI) | payer MEDICARE, MEDICAID, SELFPAY ==
--- NOTE | 2023-08-16 | DI.MAMMO_ITS ---
Exam(s) MAMMO SCREEN CALL BACK UNI EXAM: MAMMO SCREEN CALL BACK UNI CLINICAL HISTORY: F/U MAMMO, LT BREAST ASYMMETRIC BREAST TISSUE,R92.8. TECHNIQUE: Craniocaudal and mediolateral oblique Full Field Digital Mammography views of the left br east with Computer Aided Diagnosis. COMPARISON: Comparison is made with prior examinations. FINDINGS: Mammography/Tomosynthesis: Masses/Architectural Distortion: The area of concern in the left retroareolar region does not persist on the additional views. No suspicious masses or areas of architectural distortion are present. Microcalcifictions: No suspicious pleomorphic-type are seen. Skin Thickening/Nipple Retraction: None. IMPRESSION: 1. No evidence of malignancy is noted. 2. Unless there is more urgent need, follow-up screening mammography is recommended, as per [employer] guidelines. 3. The findings were discussed with the patient on the date of the examination. BI-RADS Category 1 - Negative Breast Density - Category B - Scattered areas of fibroglandular density Breast density Category C or D implies that the patient has dense breast tissue. Dense breast tissue can make it harder to find cancer on a mammogram. Dense breast tissue is also associated with an incr eased risk of breast cancer. This information about the result of the mammogram report was provided to the patient to raise their awareness. Use this report when you speak with the patient about their risks for breast cancer, which includes their family history. At that time, you may recommend additional screening tests (Ultrasoun d or MRI) as these tests may add significant information. A negative radiographic report should not delay biopsy if a dominant or clinically suspicious mass is present. Up to ten percent of cancers are not identified on mammography. A negative report may reinforce clinical impression. Adenosis and dense breasts may obscure an underlying neoplasm. False positive reports average 6 to 10%. Patient will receive a letter notifying them of these results.
== END ==
PROVIDERS: PCP Physician Assistant Medical; Visit Provider Physician Assistant Medical
DX: Z12.31 Encounter for screening mammogram for malignant neoplasm of breast (principal); R92.8 Other abnormal and inconclusive findings on diagnostic imaging of breast
CPT/HCPCS: 77063; 77067

== ENCOUNTER 2024-01-14 11:29 | Outpatient (REF) | payer MEDICARE, MEDICAID, SELFPAY ==
[2024-01-14 15:43] LABS: Hemoglobin A1C 5.9 % (<5.7)
[2024-01-14 15:52] LABS: ALT 63 U/L (14-59); AST 30 U/L (15-37); Albumin 3.9 g/dL (3.4-5.0); Alkaline Phosphatase 82 U/L (46-116); Anion Gap 6.3 mmol/L (3-11); BUN 14 mg/dL (7-18); Bilirubin, Total 0.3 mg/dL (0.2-1.0); CO2 25.7 mmol/L (21.0-32.0); CREATININE 0.7 mg/dL (0.55-1.02); Calcium 9.5 mg/dL (8.5-10.1); Calculated LDL 125 mg/dL (<100); Chloride 106 mmol/L (98-107); Cholesterol 203 mg/dL (<200); Estimated GFR 95.92 (mL/min/1.73m2); Glucose 94 mg/dL (74-106); HDL Cholesterol 44 mg/dL (40-60); Potassium 4.3 mmol/L (3.5-5.1); Sodium 138 mmol/L (136-145); Total Protein 6.9 g/dL (6.4-8.2); Triglyceride 171 mg/dL (<150)
== END 2024-01-14 11:30 | disposition home or self-care (01) ==
LOC: NCHCN 11:29
PROVIDERS: PCP Physician Assistant Medical; Visit Provider Physician Assistant Medical
DX: E78.5 Hyperlipidemia, unspecified (principal); R73.03 Prediabetes
CPT/HCPCS: 80053; 80061; 83036

== ENCOUNTER 2024-06-15 12:24 | Outpatient (REF) | payer MEDICARE, MEDICAID, SELFPAY ==
[2024-06-15 15:55] LABS: HGB 15.9 g/dL (11.2-15.7); MCH 31.4 pg (27.0-33.0); MCHC 33.1 % (32.0-36.0); MCV 95 fL (80-95); MPV 11.6 fL (8.0-11.0); Platelet Count 269 10^3/uL (130-400); RBC 5.06 10^6/uL (3.93-5.22); RDW 12.6 % (11.7-14.6); WBC 6.57 10^3/uL (4.4-10.8)
[2024-06-15 16:21] LABS: Hemoglobin A1C 5.2 % (<5.7)
[2024-06-15 16:22] LABS: ALT 40 U/L (14-59); AST 31 U/L (15-37); Albumin 3.8 g/dL (3.4-5.0); Alkaline Phosphatase 101 U/L (46-116); Anion Gap 8.1 mmol/L (3-11); BUN 15 mg/dL (7-18); Bilirubin, Total 0.45 mg/dL (0.2-1.0); CO2 27.9 mmol/L (21.0-32.0); CREATININE 0.9 mg/dL (0.55-1.02); Calcium 9.3 mg/dL (8.5-10.1); Chloride 103 mmol/L (98-107); Estimated GFR 70.51 (mL/min/1.73m2); GGT 22 U/L (5-55); Glucose 101 mg/dL (74-106); Potassium 3.7 mmol/L (3.5-5.1); Sodium 139 mmol/L (136-145); Total Protein 6.8 g/dL (6.4-8.2)
[2024-06-17 10:58] LABS: Hepatitis C Ab w Rflx HCV PCR Negative (Negative)
== END 2024-06-15 12:25 | disposition home or self-care (01) ==
LOC: NCHCN 12:24
PROVIDERS: PCP Physician Assistant Medical; Visit Provider Physician Assistant Medical
DX: R74.01 Elevation of levels of liver transaminase levels (principal); R73.03 Prediabetes
CPT/HCPCS: 80053; 85027; 86803; 82977; 83036

== ENCOUNTER 2024-06-26 00:23 | Outpatient (CLI) | payer MEDICARE, MEDICAID, SELFPAY ==
--- NOTE | 2024-06-26 | DI.CT_ITS ---
Exam(s) CT ABDOMEN WO/W EXAM: CT ABDOMEN WO/W CLINICAL HISTORY: DISORDER ADRENAL GLAND E27.9. TECHNIQUE: Imaging Protocol: Axial computed tomography images with coronal and sagittal reformatted images were created and reviewed CONTRAST MATERIAL: Intravenous: Omnipaque 350 Contrast volume:100 contrast route:IV - Oral: / no COMPARISON: CT CT CHEST LUNG CANCER SCREEN from 07/12/[address] ABDOMEN PELVIS W from 04/09/2023 FINDINGS: ABDOMEN: Lung Bases: Normal where visualized. Tiny hiatal hernia. Liver: Mild hepatic steatosis. No measurable mass. Gallbladder and biliary tract: No radiodense calculus or dilation. Pancreas: Normal density, no abnormal calcifications or inflammatory process. Spleen: Normal. Kidneys: Normal size, contour and axis. No radiodense stones or obstructive uropathy. No masses seen. Adrenal glands: Increase in size of left adrenal mass now measuring 2.5 x 2.1 cm compared with 2.0 cm x 1.5 cm. Pre contrast Hounsfield units 25. Postcontrast, venous phase central density 32. 15 min utes images the density measures 40 Hounsfield units. Contrast enhancement appears somewhat helped h eterogeneous. Right adrenal gland appears normal. Abdominal Aorta: Abdominal portion non-dilated. Lymph nodes: Within normal limits. Bones: Unremarkable for age. IMPRESSION: Increase in size of left adrenal lesion. The enhancement pattern is not typical of an adenoma. Bio psy could be considered. Unexpected findings RADIATION DOSE DELIVERED: !Error Total DLP DATA REPOSITORY: All CT scans at this facility are submitted to the National Radiology Data Registry (NRDR) Dose Index Registry (DIR) with the [employer] (ACR). RADIATION OPTIMIZATION: All CT scans at this facility use at least one of these dose optimization te chniques: automated exposure control; mA and/or kV adjustment per patient size (includes targeted exa ms where dose is matched to clinical indication); or iterative reconstruction.
[2024-06-26] MEDS: Omnipaque 350 MG/ML 100 ML BTL IJ (13:28)
[2024-06-26] MEDS: Normal Saline - Diluent 50 ML VIAL IJ (13:29)
== END 2024-06-26 00:43 ==
LOC: DI 00:26
PROVIDERS: PCP Physician Assistant Medical; Visit Provider Physician Assistant Medical
DX: E27.8 Other specified disorders of adrenal gland (principal)
CPT/HCPCS: 74170; J3490

== ENCOUNTER 2024-07-02 01:14 | Outpatient (CLI) | payer MEDICARE, MEDICAID, SELFPAY ==
--- NOTE | 2024-07-02 14:46 | DI.RAD_ITS ---
Exam(s) RF JOINT INJ. FLUORO GUID RAD EXAM: RF JOINT INJ. FLUORO GUID RAD CLINICAL HISTORY: R SHOULDER PAIN,arthritis rt glenohumeral joint,m19.011. The Patient has had pers istent right shoulder pain. Noninvasive measures have been tried. To serve as both diagnostic and t herapeutic, an injection under fluoroscopy was recommended. The risks of the procedure were discusse d with their Orthopedic provider and the patient elected to proceed. TECHNIQUE: 2D and realtime digital imaging was performed. CONTRAST MATERIAL: Water soluble contrast was utilized. COMPARISON: No exams were available for comparison FINDINGS: The Patient was greeted in the fluoroscopy room. The correct side was identified and the consent was reviewed with the patient and was signed. The patient was properly positioned on the fluoroscopy ta ble. The right shoulderwas then prepped with Chloraprep and draped. The right shoulder injection st arting point was identified by the bony landmarks and fluoroscopy. The skin and soft tissue in the t ract of the injection was anesthetized with 1% Lidocaine. A spinal needle was then inserted into the right shoulder joint at the level of the glenohumeral joint under fluoroscopic guidance. A small am ount of Omnipaque solution was injected to confirm intraarticular placement. Once confirmed, the rig ht shoulder was injected with 5cc of a solution containing 0.5% Bupivaine and 80 mg of Depo-Medrol. A bandaid was placed on the injection site. The patient tolerated the procedure well and left the de partment in good condition. IMPRESSION: Successful shoulder injection. RADIATION DOSE DELIVERED: Sarar=1.52 mGy
[2024-07-02] MEDS: Bupivacaine 0.5% Pres-Free 10 ML VIAL IJ (14:52)
[2024-07-02] MEDS: methylPREDNISolone ACETATE 80 MG/ML VIAL IM (14:53)
[2024-07-02] MEDS: Omnipaque 300 MG/ML 10 ML BTL 5 ML IJ (14:53)
== END 2024-07-02 01:34 ==
PROVIDERS: PCP Physician Assistant Medical; Visit Provider Student in an Organized Health Care Education/Training Program
DX: M19.011 Primary osteoarthritis, right shoulder (principal)
CPT/HCPCS: 20610; 77002; J0665; J1010

== ENCOUNTER 2024-08-10 01:27 | Outpatient (CLI) | payer MEDICARE, MEDICAID, SELFPAY ==
--- NOTE | 2024-08-10 08:38 | DI.CTLCSR_ITS ---
Exam(s) CT CHEST LUNG CANCER SCREEN EXAM: CT CHEST LUNG CANCER SCREEN CLINICAL HISTORY: NICOTINE DEPENDENCE CIGARETTES, F17.210, SCREENING FOR LUNG CANCER TECHNIQUE: Imaging Protocol: Axial computed tomography images with coronal and sagittal reformatted images were created and reviewed. Computer aided detection (CAD) was utilized. COMPARISON: CT CT CHEST LUNG CANCER SCREEN from 08/09/2023 FINDINGS: Tracheobronchial tree: Patent where visualized. No bronchiectasis. Pulmonary parenchyma: No consolidation or dominant measurable mass. Paraseptal emphysematous changes are seen in the lung apices. Atelectatic changes are seen in the lung bases. Lung Nodules: None. Mediastinum and Noemi: No dominant adenopathy or fluid collection. The esophagus is unremarkable. Thyroid gland: Unremarkable. Lymph nodes: Unremarkable. Pleura: No effusion or pneumothorax. Heart: The heart is not dilated. Single-vessel coronary artery calcification is present. No pericard ial effusion. Aorta: Thoracic aorta non-dilated. Upper abdomen: There is a stable left adrenal nodule. This likely reflects an adenoma. Soft Tissues: Unremarkable. Bones: Within normal limits. There is a healed fracture of the anterior aspect of the right 5th rib. Age-appropriate degenerative changes are seen in the spine. IMPRESSION: Normal low dose CT lung screening Lung RADS Cat 1 - Negative: No nodules and definitely benign nodules Lung-RADS 1.0 CATEGORIES: Category 0 - Prior chest CT exam(s) being located for comparison. Category 1 - Annual screening in 12 months. No nodules or definitely benign nodules. Category 2 - Annual screening in 12 months. Benign appearance. Nodules with low likelihood of becomin g active cancer. Category 3 - 6-month follow-up. Probably benign. Short-term follow-up suggested. Nodules with low lik elihood of becoming active cancer. Category 4A - 3-month follow-up and CT/PET if >8 mm in size. Suspicious finding. Findings which requi re additional testing. Category 4B - Findings which require additional testing and tissue sampling. Suspicious finding. Category 4X - Category 3 or 4 nodules with additional features or imaging findings that increases the suspicion of malignancy. Modifier S- Potentially clinically significant finding. (Non lung cancer) RADIATION DOSE DELIVERED: 27.99mGy.cm Total DLP 27.99mGy.cmTotal DLP DATA REPOSITORY: All CT scans at this facility are submitted to the National Radiology Data Registry (NRDR) Dose Index Registry (DIR) with the [employer] (ACR). RADIATION OPTIMIZATION: All CT scans at this facility use at least one of these dose optimization te chniques: automated exposure control; mA and/or kV adjustment per patient size (includes targeted exa ms where dose is matched to clinical indication); or iterative reconstruction.
== END 2024-08-10 01:47 ==
LOC: DI 01:27
PROVIDERS: PCP Physician Assistant Medical; Visit Provider Physician Assistant Medical
DX: F17.210 Nicotine dependence, cigarettes, uncomplicated (principal); Z12.2 Encounter for screening for malignant neoplasm of respiratory organs
CPT/HCPCS: 71271

== ENCOUNTER 2024-11-16 12:21 | Outpatient (REF) | payer MEDICARE, MEDICAID, SELFPAY ==
[2024-11-16 16:53] LABS: ALT 23 U/L (14-59); AST 17 U/L (15-37); Albumin 3.6 g/dL (3.4-5.0); Alkaline Phosphatase 106 U/L (46-116); Anion Gap 8.4 mmol/L (3-11); BUN 10 mg/dL (7-18); Bilirubin, Total 0.18 mg/dL (0.2-1.0); CO2 28.6 mmol/L (21.0-32.0); CREATININE 0.7 mg/dL (0.55-1.02); Calculated LDL 101 mg/dL (<100); Chloride 108 mmol/L (98-107); Cholesterol 172 mg/dL (<200); Estimated GFR 95.32 (mL/min/1.73m2); Glucose 92 mg/dL (74-106); HDL Cholesterol 59 mg/dL (>or=50); Potassium 4.3 mmol/L (3.5-5.1); Sodium 145 mmol/L (136-145); Total Protein 6.8 g/dL (6.4-8.2); Triglyceride 63 mg/dL (<150)
[2024-11-18 08:33] LABS: DHEA Sulfate 101 ug/dL (34-79)
[2024-11-21 22:13] LABS: Aldosterone, P 4.6 ng/dL (<=21)
== END 2024-11-16 12:22 | disposition home or self-care (01) ==
LOC: NCHCN 12:21
PROVIDERS: PCP Physician Assistant Medical; Visit Provider Physician Assistant Medical
DX: E78.5 Hyperlipidemia, unspecified (principal); E27.9 Disorder of adrenal gland, unspecified
CPT/HCPCS: 80053; 80061; 82088; 82627; 84244

== ENCOUNTER 2024-11-20 00:19 | Outpatient (CLI) | payer MEDICARE, MEDICAID, SELFPAY ==
--- NOTE | 2024-11-20 10:35 | DI.RAD_ITS ---
Exam(s) XR CERVICAL SPINE COMP 4-5V EXAM: XR CERVICAL SPINE COMP 4-5V CLINICAL HISTORY: PAIN RT SHOULDER JOINT, M25.511. TECHNIQUE: 2D digital imaging was performed. COMPARISON: No exams were available for comparison FINDINGS: Five views. No evidence of fracture, listhesis, nor offset of the spinal laminar line. All of the disc spaces exhibit normal height. There is mild anterolisthesis of C5 upon C6 related to facet arthropathy at this level. There is no facet malalignment. No cervical ribs. Oblique views reveal no significant Luschka joint osteophytes. Bone density is age-appropriate. No osseous lesion s. IMPRESSION: Normal disc height at all levels. Mild anterolisthesis C5 upon C6 related to facet arthropathy at this level. DATA REPOSITORY: RADIATION DOSE DELIVERED:
== END 2024-11-20 00:39 ==
LOC: DI 00:20
PROVIDERS: PCP Physician Assistant Medical; Visit Provider Physician Assistant Medical
DX: M43.12 Spondylolisthesis, cervical region (principal)
CPT/HCPCS: 36415; 82088; 72050; 84244

== ENCOUNTER 2024-11-20 10:06 | Outpatient (CLI) | payer MEDICARE, MEDICAID, SELFPAY ==
[2024-11-25 01:42] LABS: Aldosterone, P <4.0 ng/dL (<=21)
[2024-11-25 12:39] LABS: Renin Activity, Plasma <0.6 ng/mL/h
== END 2024-11-20 10:07 | disposition home or self-care (01) ==
PROVIDERS: PCP Physician Assistant Medical; Visit Provider Physician Assistant Medical
DX: E27.9 Disorder of adrenal gland, unspecified (principal)
CPT/HCPCS: 36415; 82088; 84244

== ENCOUNTER 2024-11-20 15:06 | Outpatient (REF) | payer MEDICARE, MEDICAID, SELFPAY ==
[2024-11-25 01:01] LABS: Cortisol, U 17 mcg/24 h (3.5-45); Urine Volume 2025 mL
[2024-11-25 01:15] LABS: Metanephrines, U 65 mcg/24 h; Normetanephrine, U 186 mcg/24 h; Total Metanephrines, U 251 mcg/24 h; Urine Volume 2025 mL
[2024-11-25 14:47] LABS: Urine Volume 2025 mL
== END 2024-11-20 15:07 | disposition home or self-care (01) ==
LOC: NCHCN 15:06
PROVIDERS: PCP Physician Assistant Medical; Visit Provider Physician Assistant Medical
DX: E27.9 Disorder of adrenal gland, unspecified (principal)
CPT/HCPCS: 81050; 82384; 82530; 83789; 83835

== ENCOUNTER 2025-01-05 02:43 | Outpatient (CLI) | payer MEDICARE, MEDICAID, SELFPAY ==
--- NOTE | 2025-01-05 | DI.MRI_ITS ---
Exam(s) MR CERVICAL SPINE WO EXAM: MR CERVICAL SPINE WO CLINICAL HISTORY: ARTHROPATHY OF CERVICAL SPINE FACET JOINT, M47.812,spondylosis w.o myelopat TECHNIQUE: Multiplanar multisequence MRI of the cervical spine was performed without intravenous con trast. COMPARISON: CR XR CERVICAL SPINE COMP 4-5V from 11/20/2024 FINDINGS: BONES: Vertebral body heights are maintained. Intervertebral disc spaces are normal. Alignment is nor mal. Bone marrow signal intensity is within normal limits. CERVICAL CORD: Craniovertebral junction is unremarkable. The cervical cord is normal size and signal intensity. SOFT TISSUES: There is a 7 mm cyst in the right lobe of the thyroid gland. No follow-up is recommend ed. There is a 1.1 x 1.5 cm complex cystic lesion in the right parotid gland. C2-3: No disc herniation or bulge is identified. No significant central spinal canal or neural forami nal stenosis. C3-4: No disc herniation or bulge is identified. No significant central spinal canal or neural forami nal stenosis C4-5: No disc herniation or bulge is identified. No significant central spinal canal or neural forami nal stenosis C5-6: No disc herniation or bulge is identified. No significant central spinal canal or neural forami nal stenosis C6-7: There is an asymmetric diffuse disc bulge extending to the left. No significant central spinal canal stenosis is seen. There is [id number] narrowing of the left neural foramen. No signifi cant right neural foraminal stenosis is seen. C7-T1: No disc herniation or bulge is identified. No significant central spinal canal or neural nayeli inal stenosis IMPRESSION: 1. Asymmetric disc bulge at C6-C7 extending into the left neural foramen causing [id number] lef t neural foraminal stenosis. No significant central spinal canal stenosis is seen. 2. 1.1 x 1.5 cm complex right parotid cystic lesion. Further evaluation with a CT scan of the neck w ith contrast or MRI of the neck with and without contrast is recommended. Unexpected findings DATA REPOSITORY:
== END 2025-01-05 03:03 ==
LOC: DI 02:43
PROVIDERS: PCP Physician Assistant Medical; Visit Provider Physician Assistant Medical
DX: M47.812 Spondylosis without myelopathy or radiculopathy, cervical region (principal)
CPT/HCPCS: 72141

== ENCOUNTER 2025-01-13 00:49 | Outpatient (CLI) | payer MEDICARE, MEDICAID, SELFPAY ==
--- NOTE | 2025-01-13 | DI.CT_ITS ---
Exam(s) CT NECK W EXAM: CT NECK W CLINICAL HISTORY: F/U ABNL MRI C SPINE,R93.7,RT PAROTID LESION. TECHNIQUE: Imaging Protocol: Axial computed tomography images with coronal and sagittal reformatted images were created and reviewed CONTRAST MATERIAL: Intravenous: Omnipaque 350 Contrast volume:100 ml contrast COMPARISON: MR MR CERVICAL SPINE WO from 01/05/2025 FINDINGS: Parotids: low-density area noted in the superficial lobe of the right parotid measuring 14 by 11 x 1 0 millimeters. Peripheral enhancement and enhancement of septations. No additional lesions identifi ed. No calcifications. Left parotid gland is normal. Submandibular glands: Normal. Thyroid gland: Small cysts in the right lobe. No follow-up recommended. Lymph nodes: There are scattered lymph nodes seen along the level one to level three all measuring le ss than 8 mm in short axis diameter which are physiologic in nature. Carotids arteries: No visible plaque. No significant stenosis or dissection. Vertebral arteries: No significant stenosis or dissection. Soft tissues: The floor the mouth is unremarkable. The tonsils and adenoids are unremarkable. The epiglottis and vocal cords are within normal limits. Lungs: Images through both lung apices are unremarkable. Bones: Degenerative changes of the cervical spine. Visualized portions of the brain and orbits: Unremarkable. Sinuses and mastoids: Clear. IMPRESSION: 14 x 11 millimeter low-density lesion in the right parotid gland with mild peripheral enhancement and enhancing septations. Findings could represent a lymphoepithelial cyst versus cystic Warthin's tumo r. RADIATION DOSE DELIVERED: 253.38mGy.cm Total DLP DATA REPOSITORY: All CT scans at this facility are submitted to the National Radiology Data Registry (NRDR) Dose Index Registry (DIR) with the [employer] (ACR). RADIATION OPTIMIZATION: All CT scans at this facility use at least one of these dose optimization te chniques: automated exposure control; mA and/or kV adjustment per patient size (includes targeted exa ms where dose is matched to clinical indication); or iterative reconstruction.
[2025-01-13 10:18] LABS: ALT 21 U/L (14-59); AST 16 U/L (15-37); Alkaline Phosphatase 97 U/L (46-116); Anion Gap 7.3 mmol/L (3-11); BUN 9 mg/dL (7-18); Bilirubin, Total 0.7 mg/dL (0.2-1.0); CO2 30.7 mmol/L (21.0-32.0); CREATININE 0.8 mg/dL (0.55-1.02); Calcium 9.7 mg/dL (8.5-10.1); Chloride 106 mmol/L (98-107); Estimated GFR 81.21 (mL/min/1.73m2); Glucose 100 mg/dL (74-106); Sodium 144 mmol/L (136-145)
[2025-01-13] MEDS: Omnipaque 350 MG/ML 100 ML BTL IJ (10:41)
[2025-01-13] MEDS: Normal Saline - Diluent 50 ML VIAL IJ (10:42)
== END 2025-01-13 01:09 ==
LOC: DI 00:50
PROVIDERS: PCP Physician Assistant Medical; Visit Provider Physician Assistant Medical
DX: R93.7 Abnormal findings on diagnostic imaging of other parts of musculoskeletal system (principal)
CPT/HCPCS: 70491; 80053; J3490

== ENCOUNTER 2025-02-02 10:51 | Outpatient (CLI) | payer MEDICARE, MEDICAID, SELFPAY ==
--- NOTE | 2025-02-02 10:30 | DI.RAD_ITS ---
Exam(s) XR SHOULDER RT COMPLETE 2+V EXAM: XR SHOULDER RT COMPLETE 2+V CLINICAL HISTORY: RIGHT SHOULDER PAIN. TECHNIQUE: 2D digital imaging was performed of the right shoulder. Two images were obtained. Grash ey and axillary views were obtained. COMPARISON: CR XR SHOULDER RT COMPLETE 2+V from 02/19/2023 FINDINGS: BONES: No acute fracture is present. No bony destructive lesion is seen. There is a spur on the infer ior aspect of the acromion. JOINTS: No dislocation present. Degenerative changes are again seen at the right glenohumeral joint c haracterized by joint space narrowing and osteophytes. SOFT TISSUE: Normal. IMPRESSION: Stable degenerative changes seen at the glenohumeral joint. DATA REPOSITORY: RADIATION DOSE DELIVERED:
== END 2025-02-02 10:52 | disposition home or self-care (01) ==
LOC: DIORS 10:52
PROVIDERS: PCP Physician Assistant Medical; Referring Provider Physician Assistant Medical; Visit Provider Student in an Organized Health Care Education/Training Program
DX: M19.011 Primary osteoarthritis, right shoulder (principal)
CPT/HCPCS: 99213; 73030

== ENCOUNTER 2025-03-16 03:17 | Outpatient (CLI) | payer MEDICARE, MEDICAID, SELFPAY ==
--- NOTE | 2025-03-16 06:30 | DI.US_ITS ---
Exam(s) US SOFT TISSUE HEAD OR NECK EXAM: US SOFT TISSUE HEAD OR NECK CLINICAL HISTORY: right-sided parotid lesion,ULTRASOUND GUIDED BX,K11.9. TECHNIQUE: Ultrasound was performed using standard protocol. COMPARISON: CT CT NECK W from 01/13/2025 FINDINGS: Sonographic assessment utilizing grayscale and color Doppler imaging was performed and targeted to the area of clinical concern in the right parotid gland. A well-circumscribed hypoechoic avascular nodule is present measuring 1.6 x 0.9 x 1.0 cm. IMPRESSION: 1.6 centimeter parotid nodule. Ultrasound-guided biopsy was not performed. DATA REPOSITORY:
== END 2025-03-16 03:37 ==
PROVIDERS: PCP Physician Assistant Medical; Visit Provider Registered Nurse Maternal Newborn
DX: K11.9 Disease of salivary gland, unspecified (principal)
CPT/HCPCS: 76536

== ENCOUNTER 2025-06-03 04:17 | Outpatient (CLI) | payer MEDICARE, MEDICAID, SELFPAY ==
--- NOTE | 2025-06-03 08:11 | DI.MAMMO_ITS ---
Exam(s) MAMMO SCREENING EXAM: MAMMO SCREENING CLINICAL HISTORY: SCREENING MAMMO Z12.31 TECHNIQUE: Bilateral full field digital CC and MLO mammographic images were obtained with 3D tomosynthesis and utilizing computer aided detection (CAD). COMPARISON: Comparison is made with prior examinations. FINDINGS: Masses/Architectural Distortion: No suspicious masses or areas of architectural distortion are present. Microcalcifications: No suspicious pleomorphic-type are seen. Skin Thickening/Nipple Retraction: None. IMPRESSION: 1. No significant interval change with no specific features of malignancy noted. 2. Unless there is more urgent need, screening mammography is recommended, as per [employer] guidelines. BI-RADS Category 1 - Negative Breast Density - Category B - There are scattered areas of fibroglandular density. Breast density Category C or D implies that the patient has dense breast tissue. Dense breast tissue can make it harder to find cancer on a mammogram. Dense breast tissue is also associated with an increased risk of breast cancer. This information about the result of the mammogram report was provided to the patient to raise their awareness. Use this report when you speak with the patient about their risks for breast cancer, which includes their family history. At that time, you may recommend additional screening tests (Ultrasound or MRI) as these tests may add significant information. A negative radiographic report should not delay biopsy if a dominant or clinically suspicious mass is present. Up to ten percent of cancers are not identified on mammography. A negative report may reinforce clinical impression. Adenosis and dense breasts may obscure an underlying neoplasm. False positive reports average 6 to 10%. Patient will receive a letter notifying them of these results.
== END 2025-06-03 04:37 ==
LOC: DI 04:17
PROVIDERS: PCP Physician Assistant Medical; Visit Provider Physician Assistant Medical
DX: Z12.31 Encounter for screening mammogram for malignant neoplasm of breast (principal)
CPT/HCPCS: 77063; 77067

== ENCOUNTER 2025-06-15 02:15 | Outpatient (CLI) | payer MEDICARE, MEDICAID, SELFPAY ==
--- NOTE | 2025-06-15 08:45 | DI.US_ITS ---
Exam(s) US SOFT TISSUE HEAD OR NECK EXAM: US SOFT TISSUE HEAD OR NECK CLINICAL HISTORY: Right parotid mass, assess for change,lesion parotid gland,k11.9. TECHNIQUE: Ultrasound was performed using standard protocol. COMPARISON: MR MR CERVICAL SPINE WO from 01/05/2025 US US SOFT TISSUE HEAD OR NECK from 03/16/2025 FINDINGS: Dedicated ultrasound examination parotid glands was performed and compared to the prior ultrasound examination of 03/25/2025. The prior cervical spine MRI of 01/05/2025 was also reviewed. There are no focal findings in the left parotid gland. In the right parotid gland the previously described solitary cystic lesion in the deep part of the gland is again noted and is unchanged in size from the prior ultrasound of 03/16/2025, measuring 1.6 x 0.9 x 1.0 cm. There are no additional nodules in the right parotid. The internal septations which were evident in this nodule on the cervical spine MRI study are difficult to appreciate on ultrasound, most probably because this is in the deep part of the gland. There benign-appearing small lymph nodes in the ipsilateral right side of the neck. IMPRESSION: Stable size of the septated cystic appearing nodule in the right parotid gland, unchanged in size from prior ultrasound examination of 03/16/2025. DATA REPOSITORY:
== END 2025-06-15 02:35 ==
LOC: DI 02:15
PROVIDERS: PCP Physician Assistant Medical; Visit Provider Otolaryngology
DX: K11.9 Disease of salivary gland, unspecified (principal)
CPT/HCPCS: 76536

== ENCOUNTER → 2025-08-26 00:52 | Outpatient (CLI) | payer MEDICARE, MEDICAID, SELFPAY ==
--- NOTE | 2025-08-26 | DI.CTLCSR_ITS ---
Exam(s) CT CHEST LUNG CANCER SCREEN EXAM: CT CHEST LUNG CANCER SCREEN CLINICAL HISTORY: CIGARETTE SMOKER, F17.210, NICOTINE DEPENDENCE CIGARETTES. TECHNIQUE: Imaging Protocol: Low Dose Technique CONTRAST MATERIAL: None COMPARISON: CT CT CHEST LUNG CANCER SCREEN from 08/10/2024 FINDINGS: CHEST: LUNGS: There is an unchanged centrally hypodense tiny benign-appearing nodule in the lateral aspect of the right upper lobe again noted, unchanged. This measures 3 mm, unchanged. There are no ominous pulmonary nodules. There are no confluent infiltrates. No pleural effusions. MEDIASTINUM: There is no obvious hilar nor mediastinal adenopathy. There is a taller than wider nodule evident in the posterior aspect of the right thyroid lobe, this measuring 1.7 x 0.9 cm. Smaller nodule noted in the left thyroid lobe. CARDIAC: Heart size is normal. There is no pericardial effusion. Diameter of the ascending thoracic aorta is normal. OTHER: There is a nodule in the left adrenal gland again noted, unchanged, measuring 2.7 cm AP by 2.1 cm wide, similar to previous. The opposite-right adrenal gland remains unremarkable. OSSEOUS: No significant osseous lesions.No fractures.. IMPRESSION: 1. Single unchanged small 3 mm benign-appearing right upper lobe lung nodule. No new nodules, pleural effusions, infiltrates, and no evidence of intrathoracic adenopathy. 2. Right thyroid lobe nodule which is taller than wider. Recommend follow-up ultrasound. In addition, there is an unchanged 2.7 x 2.1 cm nodule in left adrenal gland, unchanged from 08/10/2024.. Possibly adenoma. Cannot exclude other pathology. 3. Lung RADS Cat 2S - Benign Appearance / Behavior: Nodules with a very low likelihood of becoming a clinically active caner due to size or lack of growth. Other: Clinically Significant or Potentially Clinically Significant Findings (non lung cancer) Lung-RADS 1.0 CATEGORIES: Category 0 - Prior chest CT exam(s) being located for comparison. Category 1 - Annual screening in 12 months. No nodules or definitely benign nodules. Category 2 - Annual screening in 12 months. Benign appearance. Nodules with low likelihood of becoming active cancer. Category 3 - 6-month follow-up. Probably benign. Short-term follow-up suggested. Nodules with low likelihood of becoming active cancer. Category 4A - 3-month follow-up and CT/PET if >8 mm in size. Suspicious finding. Findings which require additional testing. Category 4B - Findings which require additional testing and tissue sampling. Category 4X - Category 3 or 4 nodules with additional features or imaging findings that increases the suspicion of malignancy. Modifier S- Potentially clinically significant findings (non lung cancer) RADIATION DOSE DELIVERED: 69.61mGy.cm Total DLP DATA REPOSITORY: All CT scans at this facility are submitted to the National Radiology Data Registry (NRDR) Dose Index Registry (DIR) with the [employer] (ACR). RADIATION OPTIMIZATION: All CT scans at this facility use at least one of these dose optimization techniques: automated exposure control; mA and/or kV adjustment per patient size (includes targeted exams where dose is matched to clinical indication); or iterative reconstruction.
== END ==
LOC: DI 00:52
PROVIDERS: PCP Physician Assistant Medical; Visit Provider Physician Assistant Medical
DX: Z12.2 Encounter for screening for malignant neoplasm of respiratory organs (principal); F17.210 Nicotine dependence, cigarettes, uncomplicated; R91.1 Solitary pulmonary nodule
CPT/HCPCS: 71271

== ENCOUNTER 2025-09-01 10:36 | Day surgery (SDC) | payer MEDICARE, MEDICAID, SELFPAY ==
[2025-09-01 11:29] VITALS: BP 129/80; PULSE 70; RESP 16; TEMP 36.1; O2SAT 99
[2025-09-01] MEDS: Lactated Ringers 1,000 ML 80 ML IV (11:45)
--- NOTE | 2025-09-01 12:14 | W.ANESPRE ---
General Info Date of Service Date Performed: 09/01/25 Height: 5 ft 8 in Weight: 79.1 kg Body Mass Index (BMI): 26.5 Surgical Procedure: Operation Date: 09/01/25 12:05 Proposed Procedure Side Surgeon hebert Brown MD Meds Allergies and Home Medications Allergies Allergy/AdvReac Type Severity Reaction Status Date / Time amitriptyline Allergy Mild Unknown Verified 09/01/25 11:26 codeine AdvReac Intermediate Hives Verified 09/01/25 11:26 aspirin AdvReac Mild GI UPSET Verified 09/01/25 11:26 Home Medication ?Medication ?Instructions ?Recorded multivitamin 1 tab PO DAILY 10/13/21 simvastatin 20 mg tablet 20 mg PO DAILY 10/13/21 tiotropium bromide 1.25 2 puff inhalation DAILY 01/01/23 mcg/actuation mist for inhalation (Spiriva Respimat) albuterol sulfate 90 mcg/actuation 2 puff inhalation .Q4-6H PRN 01/26/25 aerosol inhaler baclofen 10 mg tablet 10 mg PO BID PRN 01/26/25 docusate sodium 100 mg capsule 100 mg PO DAILY PRN 01/26/25 lidocaine 5 % topical ointment 1 applic topical .1-4 times daily 01/26/25 PRN nicotine 21 mg/24 hr daily 1 patch transdermal DAILY 01/26/25 transdermal patch (Nicoderm CQ) Held on 08/30/25. Instructions: Pt Stopped/Never Started bisacodyl 5 mg tablet,delayed 5 mg PO ONCE #4 tabs 08/26/25 release (Dulcolax (bisacodyl)) hydrocodone 10 mg-acetaminophen 1 tab PO BID PRN 08/26/25 325 mg tablet polyethylene glycol 3350 17 17 g PO ONCE #238 grams 08/26/25 gram/dose oral powder Current Visit Medications: Current Medications Generic Name Dose Route Start Last Admin Trade Name Freq PRN Reason Stop Dose Admin Ringer's Solution 1,000 mls @ 80 mls/hr 09/01/25 06:00 09/01/25 11:45 IV 09/01/25 23:59 80 mls/hr INFUSION NATHANIEL Administration Sodium Chloride 0 ml 09/01/25 06:00 Normal Saline Flush 10 Ml Syr IV 09/01/25 23:59 PRN PRN Sodium Chloride 0 ml 09/01/25 06:00 Normal Saline 10 Ml Vial IJ 09/01/25 23:59 DIRECTED PRN Sterile Water 0 ml 09/01/25 06:00 Water,Injection,Sterile 10 Ml Vial IJ 09/01/25 23:59 DIRECTED PRN PFSH Active Problems Active Problems: Problem Status Onset Code Lesion of parotid gland Acute K11.9 Arthritis of right glenohumeral joint Acute M19.011 Left rotator cuff tear Acute M75.102 Rupture of left proximal biceps tendon Acute S46.212A Tear of lateral meniscus of right knee Acute S83.281A Osteoarthritis of right knee Acute M17.11 Chronic pain Acute G89.29 Hyperlipidemia Acute E78.5 Tobacco use Acute Z72.0 Prediabetes Acute R73.03 Carpal tunnel syndrome of right wrist Acute G56.01 Medical History Medical History Pain in joint of right knee Family problems Abdominal pain, LLQ (left lower quadrant) Abdominal pain Increased frequency of urination Nontraumatic rupture of tendon Insomnia Disorder of adrenal gland Incontinence in female Uterine fibroid 2x2.3cm calcified. not concerning Surgical History Surgical History S/P tendon repair left bicep H/O right wrist surgery History of tubal ligation History of tonsillectomy History of carpal tunnel release Tobacco Smoking/Tobacco Use Status: Current every day Alcohol Alcohol Intake: current Alcohol intake frequency: holidays/special occasions only Substance Use Substance use: Daily Substance use type: marijuana and crack/cocaine Prental History History 2 Para 2 Hx # Term Pregnancies Multiple births Hx # Pregnancies Ectopic pregnancies AB induced Hx Number of Living Children AB spontaneous Past Pregnancies Del. Date GA/Weeks # Preg Succ Route Wgt Sex Labor Lgth Anesthesia Location Prov Complic Unknown 40 Yes vaginal 3458.642 g Male NUBIA Torres Unknown 40 Yes vaginal 3798.836 g Female NUBIA Johnson Delivery Date: Last Updated by: Brittani Burns Richy-Born in 1983 Delivery Date: Last Updated by: Brittani Burns Esther- Born in 1985 Vital Signs and Lab Results Vital Signs Most Recent Vital Signs in EMR: Most Recent Vital Signs Temp Pulse Resp BP Pulse Ox 36.1 C L 70 16 129/80 99 09/01/25 11:29 09/01/25 11:29 09/01/25 11:29 09/01/25 11:29 09/01/25 11:29 Anesthesia Assessment and Plan Anesthesia History Personal History: No History of Anesthesia Complications Family History: No Family History of Anesthesia Complications Exercise Tolerance Exercise Tolerance: Metabolic Equivalents>4 Pertinent Negatives Pertinent Negatives: No Symptoms of GERD (No active symptoms today), No Major Cardiovascular Symptoms or Complaints and No Major Pulmonary Symptoms or Complaints Cardiac & Pulmonary Exam Cardiac Exam: Normal S1/S2 Heart Sounds Pulmonary Exam: Clear Bilateral Breath Sounds Implantable Cardiac Device Does patient have a Pacemaker or an ICD?: No Airway Exam Known Difficult Airway: No Mallampati Class: 2 Mouth Opening: Normal (> 3cm) Thyromental Distance: Less than 3 cm Neck Range of Motion: Full ROM Neck Circumference: Normal Teeth Condition: Removable Dentures/Plates Upper and Removable Dentures/Plates Lower ASA Classification ASA Score: ASA 2 Emergency Case?: No NPO Status NPO Status: NPO Clears >2 hours, Solids >8 hours Anesthesia Plan Resuscitation Status: Full Code Anesthesia Technique: General Anesthesia Airway Planned: Natural Airway Monitors Used: Standard Monitors Preoperative Comments:: Patient reports cocaine use 10-14 days/prior. Reports first time use, none since.
[2025-09-01 12:16] VITALS: BMI 26.5
--- NOTE | 2025-09-01 13:45 | BOWEL_PTH ---
PATIENT: Marlena Magaña LOC: [facility] U#:[id number] AGE/SX: 65/F ROOM: RE09/01/[address]: Janine Brown : 1960 BED: DIS: 09/01/2025 SPEC #: [id number] RECD: 09/01/25 15:31 STATUS: ANAI REQ #: [id number] TERRIE: 09/01/25 13:[address]: Janine Brown DEPT: Surgical Specimen RECD BY: Nesha Smart ENTERED: 09/01/25 15:32 SP TYPE: Bowel OTHR DR: Michael Brooks Tissues: 1 - BIOPSY BOWEL 2 - BIOPSY BOWEL Procedures: GROSS AND MICRO LEVEL 4 Comments: [id number]
--- NOTE | 2025-09-01 14:02 | W.PM.DSUDISC ---
Date of service: 09/01/25 Discharge Plan Disposition Patient Disposition: Home Condition: Good Discharge Details Reason For Visit: Screening colonoscopy Attending Provider: Janine Brown Primary Care Provider: Michael Brooks Recommendations for Follow Up Recommended tests to be ordered by follow up provider: Follow up pathology Home Meds and New Rx's Prescriptions: Continued hydrocodone-acetaminophen 10-325 mg tablet 1 tab PO BID PRN Patient Comments: Pt reports 1/2 tab in the morning, 1/2 tab at noon, and 1 tab at night. multivitamin Tablet 1 tab PO DAILY simvastatin 20 mg tablet 20 mg PO DAILY Spiriva Respimat 1.25 mcg/actuation mist 2 puff inhalation DAILY docusate sodium 100 mg capsule 100 mg PO DAILY PRN albuterol sulfate 90 mcg/actuation HFA aerosol inhaler 2 puff inhalation .Q4-6H PRN baclofen 10 mg tablet 10 mg PO BID PRN lidocaine 5 % ointment 1 applic topical .1-4 times daily PRN nicotine [Nicoderm CQ] 21 mg/24 hr patch 24 hour 1 patch transdermal DAILY Discontinued bisacodyl [Dulcolax (bisacodyl)] 5 mg tablet,delayed release (DR/EC) 5 mg PO ONCE Qty: 4 0RF Rx Instructions: Take per colonoscopy instructions provided by ordering providers office polyethylene glycol 3350 17 gram/dose powder 17 g PO ONCE Qty: 238 0RF Rx Instructions: Take per colonoscopy instructions provided by ordering providers office Discharge Instructions Instructions: Colon polyps Additional Instructions: Your colonoscopy went well today. You did have 1 small polyp which was removed. He also had some redness in the rectum which was biopsied. The specimens will be sent to pathology. We will contact you once these results return and make recommendations for when to have a repeat colonoscopy. If you have any questions or concerns please contact the surgery office. 1. If tolerated, consume a soft, low fiber diet for 1-2 days. [address] Do not drive, drink alcohol, operate machinery, make critical decisions, or do activities that require coordination or balance for 24 hours. 3. Because air was put into your colon during the procedure, expelling air from your rectum (passing gas or farting) is normal. 4. You may not have a bowel movement for 1-3 days because of the colonoscopy prep. This is normal. 5. Go directly to the emergency room if you notice any of the following: Develop chills (warm to touch), or if you have a thermometer and your temperature is above 101 Difficulty breathing or difficultly swallowing Persistent vomiting Severe abdominal pain, other than gas cramps Severe chest pain Black, tarry stools Any bleeding ? exceeding one tablespoon 6. Call your physician if the site where your intravenous was started becomes red, swollen, painful, and warm to touch. 7. Your physician has reviewed your pre-procedure medications. Please continue to take those medications as previously ordered. You will be given specific information/education regarding any changes to your medications before leaving. Stand Alone Forms: Portal Information Activity:: Activity as Tolerated Diet:: As Tolerated Discharge Orders Discharge Orders: Discharge Order (Routine); Ordered 09/01/25 Ordered By: Janine Brown
--- NOTE | 2025-09-01 14:04 | W.COLOREPORT ---
Date of service: 09/01/25 Time of Service: 14:04 Colonoscopy Report Date of procedure: 09/01/25 Pre-op diagnosis general: Screening colonoscopy Post-op diagnosis procedure note: other (Colon polyps ) Procedure: Colonoscopy with polypectomy Surgeon: Janine Brown Anesthesia Type: General:No Airway Estimated blood loss (mL): 1 Pathology: other (Colon polyp at 40cm, rectal biopsy ) Complications: None Disposition: PACU Indications: Patient is a 65-year-old female who presents for screening colonoscopy. She denies any changes in bowel habits or family history of colon cancer. Prep: Miralax/Dulcolax Procedure Start Time: 13:29 Procedure End Time: 13:59 Retraction Time: 12 Findings: 6 mm colon polyp at 40 cm removed with cold snare. Erythema of the rectum which was biopsied with cold forceps. Otherwise normal colonoscopy. Procedure Description: The patient was brought to the endoscopy suite and placed in the left lateral decubitus position. After induction of IV sedation, a digital rectal exam was performed. Digital exam was normal. The colonoscope was then passed to the cecum without difficulty. Cecal intubation was confirmed by the identification of the appendiceal orifice and the ileocecal valve. Upon withdrawing the colonoscope, all mucosal surfaces were inspected. The prep was noted to be adequate but some stool remained in the left colon. At 40cm, there was a 6mm polyp, which was removed using a cold snare in its entirety. Specimen was retrieved for pathological analysis. There was also some evidence of erythema in the rectum and a cold forcep biopsy was performed. There was no other evidence of mucosal abnormality, polyp or cancer. Retroflexion in the rectum was unremarkable. The patient tolerated the procedure well with no complications. Postoperatively, the patient was transferred to the recovery room in stable condition. [place] Bowel Prep [place] Bowel Prep Right Colon: 3 Left Colon: 2 Transverse Colon: 3 Total Score: 8
[2025-09-01 14:07] VITALS: BP 108/72; PULSE 71; RESP 18; TEMP 36; O2SAT 94
--- NOTE | 2025-09-01 14:17 | W.ANESPOSTOP ---
Postoperative Evaluation Date, Time and Location Date Performed: 09/01/25 Time Performed: 14:17 Patient Location: Day Surgery Unit Vital Signs Most Recent Imported Vital Signs: Most Recent Vital Signs Temp Pulse Resp BP Pulse Ox 36 C L 71 18 108/72 94 09/01/25 14:07 09/01/25 14:07 09/01/25 14:07 09/01/25 14:07 09/01/25 14:07 Pain Score Most Recent Pain Score: Most Recent Pain Score Pain Level 0 09/01/25 14:07 Assessment Mental Status: Awake (Alert & Oriented to Patient Baseline) Airway and Respiratory Function: Patent airway with normal (patient baseline) respiratory exam Cardiovascular Function: Hemodynamically Stable Hydration Status: Adequately Hydrated Nausea & Vomiting: No Nausea or Vomiting Pain: Pt. Denies Any Pain Peripheral Nerve Block: Patient did not receive a nerve block
[2025-09-01 14:37] VITALS: BP 134/70; PULSE 60; RESP 18; TEMP 36; O2SAT 97
== END 2025-09-01 14:37 | disposition home or self-care (01) ==
PROVIDERS: PCP Physician Assistant Medical; Visit Provider Student in an Organized Health Care Education/Training Program
PROC: 0DJD8ZZ Inspection of Lower Intestinal Tract, Via Natural or Artificial Opening Endoscopic (ICD-10-PCS; CPT 45378; principal; 2025-09-01 12:00)
DX: Z12.11 Encounter for screening for malignant neoplasm of colon (principal); D12.5 Benign neoplasm of sigmoid colon; Z72.0 Tobacco use
CPT/HCPCS: 45385; 45380; 88305; J2704